=== PATIENT | female | born 1970 | race Caucasian/White ===

== ENCOUNTER → 2017-09-03 13:57 | Outpatient (CLI) | payer OTHER, SELFPAY ==
--- NOTE | 2017-09-03 11:55 | RAD_ITS ---
STUDY: X-RAY - RIGHT FOOT CLINICAL: Female, 47 years old. Pain across top of foot TECHNIQUE: 3 view(s) of the foot. COMPARISON: None. FINDINGS: Normal talus, calcaneus, and tarsal bones. Normal visualized subtalar, talonavicular, calcaneocuboid, tarsal and tarsometatarsal articulations. Normal metatarsi. Normal metatarsophalangeal joint of the great toe. Normal tibial and fibular sesamoid bones. Normal interphalangeal joint of the great toe. Normal phalanges of the great toe. Normal second through fifth metatarsophalangeal joints. Normal interphalangeal joints and phalanges of the lesser toes. The soft tissue structures are unremarkable. RAD/Foot min 3 Views IMPRESSION: Normal x-ray examination of the foot. Electronically Signed: Jostin Myers MD at 19:46 EDT , Service support ,
--- NOTE | 2017-09-03 14:01 | VDLE_ITS ---
Reason For Study: LEG SWELLING RIGHT LEFT GSV is normal. GSV is normal. CFV is compressible, spontaneous, phasic, CFV is compressible, spontaneous, phasic, competent and demonstrates normal competent, and demonstrates normal augmentation. augmentation. FV is compressible, spontaneous, phasic, FV is compressible, spontaneous, phasic, competent and demonstrates normal competent and demonstrates normal augmentation. augmentation. POP V is compressible, spontaneous, phasic, POP V is compressible, spontaneous, phasic, competent and demonstrates normal competent and demonstrates normal augmentation. augmentation. T/P Trunk is compressible. T/P Trunk is compressible. PTV is compressible. PTV is compressible. RT PerV is compressible. LT PerV is compressible. Procedure Exam performed in department. A preliminary report was called and/or faxed to Mack Funes. Interpretation Summary Deep veins of the lower extremities are bilaterally patent and compressible segmentally. There is no evidence of deep vein thrombosis on either side. Valvular competence appears intact within the proximal deep venous systems bilaterally. The greater saphenous veins appear bilaterally patent and compressible segmentally. Ordering Physician: PETRA Oquendo Referring Physician: PETRA Oquendo Performed By: Luz Perze RVT
== END ==
PROVIDERS: Family Provider Nurse Practitioner; PCP Nurse Practitioner; Visit Provider Nurse Practitioner Gerontology
DX: M79.671 Pain in right foot (principal); R60.0 Localized edema
CPT/HCPCS: 73630; 93970

== ENCOUNTER → 2018-02-21 16:40 | Outpatient (CLI) | payer OTHER, SELFPAY ==
[2017-03-04 15:26] VITALS: BMI 35.3
[2018-02-21 17:14] LABS: Absolute Lymphocyte Count 1.26 X10^3/ul (0.83-4.51); Absolute Neutrophil Count 3.7 X10^3/uL (2.0-7.7); Basophil# 0.01 X10^3/uL; Basophil% 0.2 % (0-1); Eosinophil# 0.09 X10^3/uL; Eosinophils% 1.6 % (0-5); Hematocrit 42.6 % (37-47); Hemoglobin 13.9 g/dl (12.0-15.0); Lymphocyte # 1.26 X10^3/ul (4.0); Lymphocyte % 22.1 % (19-41); Mean Corp Hgb Conc 32.6 g/gl (32-36); Mean Corpuscular Hgb 31.9 pg (27.0-32.0); Mean Corpuscular Volume 97.7 fL (81-99); Mean Platelet Vol. 8.7 fl (6.2-12.0); Monocyte# 0.64 X10^3/uL; Monocyte% 11.2 % (0-10); Neutrophil # 3.71 X10^3/uL (2.7-7.7); Neutrophil % 64.9 % (47-70); Platelet Count 368 K/mm3 (150-450); RBC Distribution Width CV 12.8 % (11.6-14.6); RBC Distribution Width SD 45.6 fl (35.1-43.9); Red Blood Count 4.36 M/mm3 (4.2-5.4); White Blood Count 5.7 K/mm3 (4.4-11.0)
[2018-02-21 17:16] LABS: POSITIVE COUNT NO; POSITIVE DIFFERENTIAL NO; POSITIVE MORPHOLOGY NO
[2018-02-21 17:54] LABS: ALB/GLOB Ratio 1.1 RATIO (0.9-2.4); AST(SGOT) 17 U/L (15-37); Alanine Aminotransfer ALT/SGPT 23 U/L (13-56); Albumin, Serum 3.9 g/dL (3.2-5.0); Alkaline Phosphatase 56 U/L (45-117); Anion Gap 9 (5-15); BUN 10 mg/dL (7-18); BUN/Creat Ratio 13.5 RATIO (10-20); Calcium,Total 8.6 mg/dL (8.5-10.1); Chloride 105 mmol/L (98-107); Creatinine, Serum 0.74 mg/dL (0.55-1.02); EST Glomerular Filtration Rate 90 mL/min (>60); Est Glom Filt Rate - Afr Amer 109 mL/min (>60); Globulin 3.6 g/dL (2.2-4.2); Glucose 76 mg/dL (74-106); Potassium 3.6 mmol/L (3.5-5.1); Protein, Total 7.5 g/dL (6.4-8.2); Sodium Level 140 mmol/L (136-145)
[2018-02-22 00:44] LABS: Xtra Tube EP Lab EXTRA TUBE
[2018-02-22 00:45] LABS: Xtra Tube EP Lab EXTRA TUBE
[2018-02-24 20:11] LABS: Immunoglobulin G 1016 mg/dL (700-1600); Immunoglobulin M 303 mg/dL (26-217)
[2018-02-25 09:45] LABS: Immunoglobulin A 19 mg/dL (87-352)
== END ==
PROVIDERS: Family Provider Nurse Practitioner; PCP Nurse Practitioner; Referring Provider Internal Medicine Medical Oncology; Visit Provider Internal Medicine Medical Oncology
DX: R76.8 Other specified abnormal immunological findings in serum (principal)
CPT/HCPCS: 36415; 80053; 82784; 83883; 85025

== ENCOUNTER → 2018-05-07 13:48 | Outpatient (CLI) | payer OTHER, SELFPAY ==
[2018-04-12 13:31] VITALS: BMI 34.7
--- NOTE | 2018-05-07 13:50 | CT_ITS ---
STUDY: CT ABDOMEN WITH CONTRAST REASON FOR EXAM: Female, 47 years old. Splenomegaly TECHNIQUE: Transaxial images were obtained post I.V. administration of Isovue 300 100CC IV, and with oral contrast. Sagittal and coronal images were reconstructed. Individualized dose optimization techniques were used for this CT. COMPARISON: 04/21/2016 FINDINGS: The visualized lung bases are unremarkable. The visualized portions of the heart are within normal limits. Normal liver. There are surgical clips in the gallbladder fossa consistent with a prior cholecystectomy. The spleen is normal in size, measuring 10.4 cm in maximal dimension. 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 Normal pancreas. Normal bilateral adrenal glands. Normal right kidney. Normal left kidney. Normal visualized stomach. Normal small intestine. Normal colon. The appendix is visualized and appears normal. Normal abdominal aorta. Normal inferior vena cava. Normal retroperitoneum. Normal abdominal wall. Normal osseous structures. CT/Abdomen WITH IV Contrast IMPRESSION: Normal size spleen. 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 Electronically Signed: Aguilar Morrison, at 17:30 EST Tel , Service support ,
== END ==
PROVIDERS: Family Provider Nurse Practitioner; PCP Nurse Practitioner; Referring Provider Internal Medicine Rheumatology; Visit Provider Internal Medicine Rheumatology
DX: R16.1 Splenomegaly, not elsewhere classified (principal)
CPT/HCPCS: 74160; Q9967

== ENCOUNTER → 2018-09-23 12:08 | Outpatient (CLI) | payer OTHER, SELFPAY ==
[2018-04-12 13:31] VITALS: BMI 34.7
--- NOTE | 2018-09-23 12:12 | RAD_ITS ---
STUDY: X-RAY CHEST REASON FOR EXAM: Female, 48 years old. Cough TECHNIQUE: PA and lateral views of the chest. COMPARISON: May 25, 2016 chest x-ray FINDINGS: The lungs are clear and expanded. There is no demonstrated pleural abnormality. Normal size heart. Normal mediastinum and estrella. Normal visualized pulmonary arteries. Normal visualized aortic arch and descending thoracic aorta. Normal visualized thoracic spine. Normal visualized ribs, clavicles, and shoulders. There is no demonstrated abnormality of the visualized soft tissue structures of the upper abdomen. RAD/Chest PA and Lateral IMPRESSION: Normal x-ray examination of the chest. Electronically Signed: Missy Flynn MD at 17:08 EDT Tel , Service support ,
== END ==
PROVIDERS: Family Provider Nurse Practitioner; PCP Nurse Practitioner; Referring Provider Internal Medicine; Visit Provider Internal Medicine
DX: R06.2 Wheezing (principal)
CPT/HCPCS: 71046

== ENCOUNTER → 2018-11-04 08:33 | Outpatient (CLI) | payer OTHER, SELFPAY ==
[2018-04-12 13:31] VITALS: BMI 34.7
--- NOTE | 2018-11-04 08:42 | RAD_ITS ---
CLINICAL HISTORY: Female, 48 years old. GERD, with dysphagia PROCEDURE: Esophagram Technique: Multiple fluoroscopic assessment performed after administration of double contrast medium, followed by single contrast medium with images acquired along the esophagus. Findings: Single and also double contrast study of the esophagus demonstrate that there is unremarkable mucosal pattern of the esophagus, without evidence of intraluminal lesion or stricture. Overall unremarkable peristalsis through the esophagus. There is no evidence of Zenker's diverticulum proximally. There is mild gastroesophageal reflux to the distal one third of esophagus. No evidence of sliding hiatal hernia is noted. Evaluation with a 0.5 inch barium pill demonstrates unremarkable peristalsis through the esophagus, with unremarkable emptying into the stomach without delay. RAD/Esophagus Only IMPRESSION: Mild gastroesophageal reflux to distal one third of esophagus. Unremarkable mucosal pattern of the esophagus. No evidence of focal stricture or narrowing. No evidence of Zenker's diverticulum. No evidence of sliding hiatal hernia is noted. Normal peristalsis of a 0.5 inch tablet through the esophagus and the gastroesophageal junction. Electronically Signed: Chuy Hunt MD at 14:53 EDT Tel [phone], Service support ,
== END ==
PROVIDERS: Family Provider Nurse Practitioner; PCP Nurse Practitioner; Referring Provider Otolaryngology; Visit Provider Otolaryngology
DX: R13.10 Dysphagia, unspecified (principal)
CPT/HCPCS: 74220

== ENCOUNTER → 2019-02-04 15:54 | Outpatient (CLI) | payer OTHER, SELFPAY ==
[2018-04-12 13:31] VITALS: BMI 34.7
--- NOTE | 2019-02-04 15:57 | RAD_ITS ---
STUDY: X-RAY - ABDOMEN/PELVIS REASON FOR EXAM: Female, 48 years old. Left upper quadrant pain TECHNIQUE: AP supine and upright views of the abdomen and pelvis. COMPARISON: None. FINDINGS: Normal visualized lung bases. There is an unremarkable bowel gas pattern. There is no demonstrated free abdominal air. The visualized liver, spleen and kidneys are grossly normal in size and morphology. Normal soft tissue structures. Normal visualized osseous structures. RAD/Abd Inc Decub and/or Erect IMPRESSION: Normal x-ray examination of the abdomen and pelvis. Electronically Signed: Jostin Myers MD at 16:18 EST , Service support ,
== END ==
PROVIDERS: Family Provider Nurse Practitioner; PCP Nurse Practitioner; Referring Provider Nurse Practitioner; Visit Provider Nurse Practitioner
DX: R10.12 Left upper quadrant pain (principal)
CPT/HCPCS: 74019

== ENCOUNTER → 2019-02-09 11:24 | Outpatient (CLI) | payer OTHER, SELFPAY ==
[2018-04-12 13:31] VITALS: BMI 34.7
== END ==
PROVIDERS: Family Provider Nurse Practitioner; PCP Nurse Practitioner; Referring Provider Nurse Practitioner; Visit Provider Nurse Practitioner
DX: I10 Essential (primary) hypertension (principal)
CPT/HCPCS: 93225; 93226

== ENCOUNTER → 2019-02-19 13:22 | Outpatient (CLI) | payer OTHER, SELFPAY ==
[2019-02-19 13:03] VITALS: BMI 34.7
--- NOTE | 2019-02-19 13:24 | RAD_ITS ---
HISTORY: cysts that have opened up and are oozing, 2nd and third distal fingers ADDITIONAL HISTORY: None provided. TECHNIQUE: Left hand 3 views Number of images including paperwork: 3 COMPARISON: None FINDINGS: BONES: No acute fracture. JOINTS: No subluxation. Mild degenerative changes of the small joints of the hand and of the wrist. SOFT TISSUES: No distinct foreign body. RAD/Hand Min 3 Views IMPRESSION: Degenerative changes without acute osseous abnormality. at 2344 Reported and signed by: Elaine Case MD Electronically Signed: Elaine Case MD at 23:44 EST Tel , Service support ,
[2019-02-19 18:03] LABS: AST(SGOT) 16 U/L (15-37); Alanine Aminotransfer ALT/SGPT 22 U/L (13-56); Albumin, Serum 3.9 g/dL (3.2-5.0); Alkaline Phosphatase 49 U/L (45-117); Cholesterol 187 mg/dL (200); Globulin 3.1 g/dL (2.2-4.2); High Density Lipoprotein 55 mg/dL; Triglycerides 83 mg/dL; Very Low Density Lipoprotein 17 mg/dL (5-40)
== END ==
PROVIDERS: Internal Medicine Cardiovascular Disease; Family Provider Nurse Practitioner; PCP Nurse Practitioner; Referring Provider Physician Assistant; Visit Provider Physician Assistant
DX: R94.5 Abnormal results of liver function studies (principal); Z83.438 Family history of other disorder of lipoprotein metabolism and other lipidemia; E66.9 Obesity, unspecified; E72.12 Methylenetetrahydrofolate reductase deficiency; R76.8 Other specified abnormal immunological findings in serum; D47.2 Monoclonal gammopathy; I10 Essential (primary) hypertension; R07.9 Chest pain, unspecified
CPT/HCPCS: 36415; 73130; 80061; 80076

== ENCOUNTER → 2019-02-26 20:22 | Outpatient (CLI) | payer OTHER, SELFPAY ==
[2019-02-19 15:14] VITALS: BMI 34.0
== END ==
PROVIDERS: Family Provider Nurse Practitioner; PCP Nurse Practitioner; Referring Provider Internal Medicine Cardiovascular Disease; Visit Provider Internal Medicine Cardiovascular Disease
DX: G47.10 Hypersomnia, unspecified (principal); I10 Essential (primary) hypertension
CPT/HCPCS: 95810

== ENCOUNTER → 2019-03-05 15:02 | Outpatient (CLI) | payer OTHER, SELFPAY ==
[2018-04-12 13:31] VITALS: BMI 34.7
[2019-03-05 07:49] VITALS: BMI 35.1
--- NOTE | 2019-03-05 15:03 | ECHOD_ITS ---
Reason For Study: CHEST PAIN Procedure This was a 2D Doppler, Color Flow transthoracic echocardiogram. Exam performed in department. Left Ventricle Normal size and thickness. The estimated ejection fraction is 65 %. Normal diastology for age. No regional wall motion abnormalities noted. Right Ventricle Normal size and thickness. Normal systolic function. Atria Normal left atrium. Normal right atrium. Normal atrial septum. Mitral Valve The mitral valve is structurally normal. No prolapse or stenosis seen. Tricuspid Valve Normal tricuspid valve. Unable to estimate RV systolic pressure due to insufficient tricuspid regurgitant envelope. Aortic Valve Normal aortic valve. Trisinus/trileaflet aortic valve. Pulmonic Valve Normal pulmonic valve. Great Vessels Normal aortic root. Normal arch. Normal inferior vena cava. Inferior vena cava collapse with sniff. Pericardium/Pleural No pericardial effusion. MMode/2D Measurements & Calculations LVIDd: 4.0 cm IVSd: 0.83 cm Ao root diam: 2.9 cm LVIDs: 2.6 cm LVPWd: 0.82 cm RVDd: 2.6 cm FS: 35.4 % LAV(MOD-bp): 50.0 ml LA A4 area: 17.3 cm2 LA dimension(2D): 2.7 cm LAV(MOD-bp) Indexed: 28.5 ml/m2 LAV(MOD-sp2): 43.4 ml LAV(MOD-sp4): 51.6 ml RA A4 area: 12.2 cm2 Time Measurements MV dec time: 0.15 sec Doppler Measurements & Calculations MV E max marcus: 98.0 cm/sec Lat Peak E' Marcus: 13.8 cm/sec Med Peak E' Marcus: 13.3 cm/sec MV A max marcus: 71.4 cm/sec E/E' lat: 7.1 E/E' med: 7.4 MV E/A: 1.4 Ao V2 max: 114.6 cm/sec LV V1 max: 98.4 cm/sec PA V2 max: 101.7 cm/sec Ao max P.3 mmHg LV V1 max P.9 mmHg Interpretation Summary The estimated ejection fraction is 65 %. Normal diastology for age. Unable to estimate RV systolic pressure due to insufficient tricuspid regurgitant envelope. Compared to echo report dated 11/02/2015, no appreciable changes noted. Ordering Physician: Mick Chavez Referring Physician: Madai Kaur Performed By: Kasie Sainz RDCS, RVT
--- NOTE | 2019-03-05 17:04 | BI_ITS ---
MAMMOGRAPHY - BILATERAL SCREENING REASON FOR EXAM: Female, 48 years old. Routine annual screening examination. PERTINENT HISTORY: Non-contributory. TECHNIQUE: Digital bilateral breast ojse (3D mammographic acquisition) in the CC and MLO projections. 2-D mediolateral oblique (MLO) and craniocaudad (CC) views of both breasts were obtained. CAD: Full Field Digital Mammography with Computer Added Detection was performed. COMPARISON: Comparison is made with prior study dated March 09, 2015. FINDINGS: Breast Composition: There are scattered areas of fibroglandular density. There are no dominant masses or suspicious calcifications. No other significant abnormalities are identified. There has been no significant change since the prior study. BI/SCREEN MAMM (CAD) W/JOSE BILAT IMPRESSION: Stable bilateral screening mammogram. Yearly follow-up mammogram recommended. (A) ASSESSMENT CATEGORY: BIRADS Category 1: Negative. A letter regarding these results will be sent to the patient by the facility within 30 days. Approximately 10% of breast cancers are not detected by mammography. A normal mammogram should not delay biopsy of a clinically suspicious abnormality. [id number] Electronically Signed: Edwin Salmeron, at 9:36 EST , Service support ,
== END ==
PROVIDERS: Family Provider Nurse Practitioner; PCP Nurse Practitioner; Referring Provider Internal Medicine Cardiovascular Disease; Visit Provider Internal Medicine Cardiovascular Disease
DX: I10 Essential (primary) hypertension (principal); R00.0 Tachycardia, unspecified; R07.9 Chest pain, unspecified; E72.12 Methylenetetrahydrofolate reductase deficiency; R76.8 Other specified abnormal immunological findings in serum; D47.2 Monoclonal gammopathy; M06.9 Rheumatoid arthritis, unspecified; C88.0 Waldenstrom macroglobulinemia; Z12.31 Encounter for screening mammogram for malignant neoplasm of breast
CPT/HCPCS: 77063; 77067; 93306

== ENCOUNTER → 2019-03-12 10:02 | Outpatient (CLI) | payer OTHER, SELFPAY ==
[2019-02-19 15:14] VITALS: BMI 34.0
[2019-03-05 07:49] VITALS: BMI 35.1
--- NOTE | 2019-03-12 10:02 | STE_ITS ---
Reason For Study: Chest Pain Stress Results Protocol: Spencer Protocol Maximum Predicted HR: 174 bpm Target HR: 148 bpm % Maximum Predicted HR: 87 % DurationHeart Rate Stage (mm:ss) (bpm) BP Comment Baseline 74 110/60No Chest Pain Spencer Protocol Stage I 3:00 99 124/70No Chest Pain Spencer Protocol Stage II 3:00 116 138/64No Chest Pain Spencer Protocol Stage III 3:00 127 150/62No Chest Pain Spencer Protocol Stage IV 1:01 151 / No Chest Pain Recovery 88 118/70No Chest Pain Stress Duration: 10:01 mm:ss Maximum Stress HR: 151 bpm METS: 13 Baseline Echocardiogram Findings The estimated ejection fraction is 65 %. Stress Echo Wall motion Data Resting WM Intermediate WM Stress WM Resting Wall Motion Wall Motion Stress No regional wall motion No regional wall motion abnormalities noted. abnormalities noted. EKG Data The baseline ECG displays normal sinus rhythm. The patient exercised according to the regular Spencer protocol for a total duration of 10:01. The maximum heart rate attained was 153 beats per minute. This was 87% of maximum predicted heart rate. The patient exercised into stage 4 of the Spencer protocol. During stress, there were no ST or T wave changes noted to suggest ischemia. No arrhythmias noted. No clinical angina was noted. Interpretation Summary The estimated ejection fraction is 65 %. Normal, adequate, treadmill echocardiogram. Negative for ischemia by EKG and echocardiographic criteria. No anginal symptoms noted. No arrhythmias noted. Appropriate blood pressure response to exercise. Average exercise capacity for age. Test terminated due to the attainment of target heart rate. Final LVEF is 75%. No complications. Ordering Physician: Mick Chavez Referring Physician: Madai Kaur Performed By: Louis Fraire RCS
== END ==
PROVIDERS: Family Provider Nurse Practitioner; PCP Nurse Practitioner; Referring Provider Internal Medicine Cardiovascular Disease; Visit Provider Internal Medicine Cardiovascular Disease
DX: R07.9 Chest pain, unspecified (principal); R00.0 Tachycardia, unspecified; I10 Essential (primary) hypertension; E72.12 Methylenetetrahydrofolate reductase deficiency; R76.8 Other specified abnormal immunological findings in serum; D47.2 Monoclonal gammopathy; M06.9 Rheumatoid arthritis, unspecified; C88.0 Waldenstrom macroglobulinemia
CPT/HCPCS: 93017; 93350; Q9957; A4216

== ENCOUNTER → 2019-03-26 10:34 | Outpatient (CLI) | payer OTHER, SELFPAY ==
[2019-03-05 07:49] VITALS: BMI 35.1
== END ==
PROVIDERS: Family Provider Nurse Practitioner; PCP Nurse Practitioner; Visit Provider Nurse Practitioner Acute Care
DX: Z46.89 Encounter for fitting and adjustment of other specified devices (principal)

== ENCOUNTER → 2019-04-21 16:12 | Outpatient (CLI) | payer OTHER, SELFPAY ==
[2019-04-21 15:02] VITALS: BMI 35.1
[2019-04-21 16:47] LABS: Hematocrit 39.4 % (37-47); Hemoglobin 13.1 g/dL (12.0-15.0); Mean Corp Hgb Conc 33.2 g/dL (32-36); Mean Corpuscular Hgb 31.7 pg (27.0-32.0); Mean Corpuscular Volume 95.4 fL (81-99); Mean Platelet Vol. 8.8 fl (6.2-12.0); Platelet Count 371 K/mm3 (150-450); RBC Distribution Width CV 12.7 % (11.6-14.6); RBC Distribution Width SD 44.8 fl (35.1-43.9); Red Blood Count 4.13 M/mm3 (4.2-5.4); White Blood Count 5.4 K/mm3 (4.4-11.0)
[2019-04-21 17:30] LABS: Vitamin B12 445 pg/mL (211-911)
[2019-04-21 18:07] LABS: Iron Binding Capacity,Total 391 ug/dL (250-450)
[2019-04-23 17:08] LABS: Vitamin D 1,25-Dihydroxy 31.3 pg/mL (19.9-79.3)
== END ==
PROVIDERS: PCP Nurse Practitioner; Referring Provider Nurse Practitioner Acute Care; Visit Provider Nurse Practitioner Acute Care
DX: R53.83 Other fatigue (principal)
CPT/HCPCS: 36415; 82607; 82652; 82746; 83550; 85027

== ENCOUNTER → 2021-01-09 08:29 | Outpatient (CLI) | payer OTHER, SELFPAY ==
--- NOTE | 2021-01-09 08:35 | US_ITS ---
STUDY: ULTRASOUND OF THE FEMALE PELVIS - COMPLETE REASON FOR EXAM: Female, 50 years old. LOWER ABD PRESSURE, RLQ PAIN LMP: 01/04/2021 TECHNIQUE: Transabdominal TECHNICAL QUALITY: Adequate. COMPARISON: None. FINDINGS: The uterus is anteverted and is in a midline position. The uterus measures 7.4 x 3.2 x 2.2 cm. Normal uterine cervix. The endometrium measures 6 mm in thickness, and is hyperechoic. There is no demonstrated endometrial mass. There is no demonstrated myometrial mass. I.U.D. - The patient does not have an I.U.D. The right ovary is visualized. The right ovary measures 2.8 x 1.7 x 1.5 cm. There is no right ovarian cyst or ovarian mass. There is no visualized right adnexal mass or complex lesion. There is normal arterial and normal venous vascularity. Status post left oophorectomy. There is no fluid in the cul-de-sac. The pre void volume of the bladder was ml. The post void volume of the bladder was ml. Polycystic ovary disease: No. US/Pelvic (Non ) IMPRESSION: Normal female pelvis after left oophorectomy. Electronically Signed: Liam Bennett MD at 8:21 EDT Tel , Service support ,
== END ==
PROVIDERS: PCP Nurse Practitioner; Referring Provider Nurse Practitioner; Visit Provider Nurse Practitioner
DX: R10.31 Right lower quadrant pain (principal)
CPT/HCPCS: 76856; 93976

== ENCOUNTER → 2021-01-10 08:06 | Outpatient (CLI) | payer OTHER, SELFPAY ==
--- NOTE | 2021-01-10 08:09 | US_ITS ---
STUDY: ABDOMINAL ULTRASOUND REASON FOR EXAM: Female, 50 years old. ABD PAIN TECHNIQUE: Transabdominal ultrasound was performed with real-time and static carreno scale imaging. TECHNICAL QUALITY: Adequate. COMPARISON: Comparison is made with prior study dated 07/03/2016. FINDINGS: Liver: The liver measures 12.7 cm. There is increased echogenicity consistent with fatty infiltration. The bile ducts are within normal limits. There is hepatic color flow. The direction of portal flow is hepatopetal. There is no demonstrated mass lesion. Gallbladder: The patient is status post cholecystectomy. Common Bile Duct (C.B.D.): The common bile duct measures 4 mm. Pancreas: Normal size of the head, body of the pancreas. The tail portion is obscured due to overlying bowel gas. There is normal echogenicity of the pancreas. There is no demonstrated pancreatic mass or cyst. Spleen: Normal size of the spleen. The spleen measures 10.5 cm x 5.7 cm x 3.7 cm. Right Kidney: Normal size of the right kidney. The right kidney measures 10 cm x 4.5 cm x 4.7 cm. Normal renal cortex. The right cortex measures 1.7 cm. There is no demonstrated renal mass or cyst. There is no right hydronephrosis. Left Kidney: Normal size of the left kidney. The left kidney measures 11.4 cm x 4.4 cm x 5.3 cm. Normal renal cortex. The left cortex measures 1.9 cm. There is no demonstrated renal mass or cyst. There is no left hydronephrosis. Aorta: Unremarkable I.V.C.: The IVC is patent. There is no ascites. US/Abdomen Complete IMPRESSION: Fatty infiltration of the liver. Electronically Signed: Edwin Salmeron MD at 15:23 EDT , Service support ,
== END ==
PROVIDERS: PCP Nurse Practitioner; Referring Provider Nurse Practitioner; Visit Provider Nurse Practitioner
DX: R10.30 Lower abdominal pain, unspecified (principal)
CPT/HCPCS: 76700

== ENCOUNTER 2021-05-18 09:57 | Outpatient (CLI) | payer OTHER, SELFPAY ==
--- NOTE | 2021-05-19 09:48 | PFTCOMP_ITS ---
COMPLETE PULMONARY FUNCTION TEST INTERPRETATION Brief HPI: Patient is a 50 year old female, currently under the care of myself, who presents to [facility] for complete pulmonary function tests secondary to diagnosis of cough. Respiratory therapist reports good effort and reproducible results. Interpretation: Forced expiration spirometry shows no large airways obstructive ventilatory defect with an FEV1 of 98% predicted. There is no significant bronchodilator response by strict ATS criteria. Spirograms are of good quality and plateau normally. The respiratory flow volume loop shows a normal pattern. Lung volumes by body plethysmography show a normal total lung capacity at 4.74 L, 119% predicted. All other lung volumes are within normal limits. Diffusion capacity by carbon monoxide is normal at 77% predicted. The airway resistance is normal. No previous pulmonary function tests were available for review. Impression: These pulmonary function tests are within normal limits.
== END 2021-05-18 23:59 | disposition home or self-care (01) ==
LOC: PSN 09:58
PROVIDERS: PCP Nurse Practitioner; Referring Provider Nurse Practitioner; Visit Provider Nurse Practitioner
DX: R05.9 Cough, unspecified (principal)
CPT/HCPCS: 94060; 94726; 94729

== ENCOUNTER 2021-05-31 02:56 | Emergency (ER) | payer OTHER, SELFPAY ==
[2021-05-31 02:58] VITALS: BP 125/86; PULSE 73; RESP 16; TEMP 36.1; O2SAT 98; BMI 37.8
[2021-05-31 03:00] VITALS: BP 125/86; PULSE 73; RESP 16; TEMP 36.1; O2SAT 98
--- NOTE | 2021-05-31 03:08 | EKG12_ITS ---
Test Reason : ABD PAIN Blood Pressure : / mmHG Vent. Rate : 068 BPM Atrial Rate : 068 BPM P-R Int : 162 ms QRS Dur : 070 ms QT Int : 404 ms P-R-T Axes : 084 065 071 degrees QTc Int : 429 ms Normal sinus rhythm Normal ECG Confirmed by KAREN SALDAÑA, MARYJANE ([id number]), index editor ALIYA BECK ([id number]) on 06/01/2021 9:42:51 AM Referred By: FRANKY Confirmed By:MARYJANE JONES MD
--- NOTE | 2021-05-31 03:08 | CT_ITS ---
STUDY: CT ABDOMEN AND PELVIS WITH CONTRAST REASON FOR EXAM: Female, 50 years old. abdominal pain -- IV PO Contrast RADIATION DOSAGE (If Supplied By Facility): CTDIvol = ( 18.04 ) mGy, DLP = ( 1232.91 ) mGycm TECHNIQUE: Transaxial images were obtained from the dome of the diaphragm to the symphysis pubis without oral contrast. Oral and amp; IV Gastrografin and amp; 100mL Isovue-300 was administered. Sagittal and coronal images were reconstructed. Individualized dose optimization techniques were used for this CT. COMPARISON: None. FINDINGS: The visualized lung bases are unremarkable. The visualized portions of the heart are within normal limits. Normal liver. There is non-visualization of the gallbladder, which may be secondary to either contraction or a prior cholecystectomy. Normal spleen. Normal pancreas. Normal bilateral adrenal glands. Normal right kidney. Normal left kidney. Normal visualized stomach. Normal small intestine. Normal colon. The appendix is visualized and appears normal. Normal abdominal aorta. Normal inferior vena cava. There is borderline enlargement of retroperitoneal lymph nodes the largest lymph node is in the right common iliac chain measuring approximately 1.5 x 1.4 cm. These lymph nodes are stable in size since the study from 04/21/2016 and are consistent with reactive lymphoid hyperplasia. Normal urinary bladder. Normal abdominal wall. Normal osseous structures. CT/Abdomen/Pelvis WITH Contrast IMPRESSION: Normal enhanced CT of the abdomen and pelvis. Electronically Signed: Kin Lane MD at 6:09 EDT ,
--- NOTE | 2021-05-31 03:09 | ED.VIS.GI ---
HPI HPI - GI History of Present Illness Chief Complaint: Abd Pain Detail of Chief Complaint: Abdominal pain x1 month Informant: patient Abdominal Pain/Flank Pain Current Severity: 05/25 Narrative Narrative: Patient presents to the emergency department complaint of abdominal pain that she said for about a month. Patient has history of gastritis and has tried Carafate and does not seem to be helping her pain. She tells me the pain comes and goes. She has pain whether she eats or does not eat but food typically makes the pain worse about an hour after eating. Patient cannot get into see her bullion weigher for a couple of months. She denies any fevers. She has had some mild nausea but no vomiting. She denies blood in her stool or black tarry stool. She denies urinary symptoms. She describes a pressure underneath her left ribs. Prior similar symptoms: Yes PFSH [facility] Medical History (Updated 05/31/21 @ 06:[address] Holger Cornelius, ) Anemia Anticardiolipin antibody positive Anxiety Chest pain Chest pain Depression Dermoid cyst Elevated LFTs Essential hypertension Family history of hyperlipidemia GERD (gastroesophageal reflux disease) Heterozygous MTHFR mutation [id number] Macroglobulinemia Mild sleep apnea Monoclonal gammopathy Neutropenia Obesity OOPHERECTOMY NEREIDA (obstructive sleep apnea) Raynaud disease Rheumatoid arthritis Shingles Splenic infarction Tachycardia Undifferentiated connective tissue disease Home Medications omeprazole 40 mg PO DAILY 02/18/15 [History Last Taken 03/10/16 08:00] cholecalciferol (vitamin D3) 2,000 unit PO BID PRN 06/13/16 [History Last Taken Unknown] lorazepam 0.5 mg PO DAILY PRN PRN 06/13/16 [History Last Taken Unknown] prednisone 10 mg PO DAILY PRN 07/09/16 [History Last Taken Unknown] Ca carb-Ca gluc-Mg ox-Mg gluco 2 ea PO DAILY PRN 01/23/17 [History Last Taken Unknown] amlodipine 2.5 mg tablet 2.5 mg PO DAILY #30 tab 02/19/19 [History Last Taken Unknown] hydroxychloroquine 200 mg tablet 200 mg PO DAILY tab 02/19/19 [History Last Taken Unknown] vilazodone 20 mg tablet 20 mg PO DAILY 04/21/19 [History Last Taken Unknown] lidocaine HCl [Lidocaine Viscous] 15 ml MUCOUS MEMBRANE TID PRN #100 ml 05/31/21 [Rx Last Taken Unknown] Allergy/AdvReac Type Severity Reaction Status Date / Time tramadol AdvReac PALPITATION Verified 06/02/20 10:50 S Family History Mother Thyroid disorder Colon cancer Father Lung cancer Colon cancer Obesity Hypertension Surgical History Hx of cholecystectomy Social History (Updated 06/02/20 @ 15:[address] Spencer Glaser MD) Smoking Status: Never smoker ROS ROS ED Constitutional Constitutional ED: Reports systems reviewed and no addt'l complaints, except as documented; Denies body ache(s), change in weight or chills Eyes Eyes: Denies acute decrease in peripheral vision, change in vision, double vision or loss of vision ENT ENT ED: Reports none; Denies ear pain, lip swelling, loss taste/smell, neck pain, otalgia or sore throat Cardiovascular Cardiovascular: Reports none; Denies abdominal pain, chest pain with activity, leg edema, lightheadedness, palpitations, rapid heart rate or syncope Respiratory/Chest Respiratory/Chest: Reports none; Denies change in mental status, dry cough, dyspnea, hemoptysis, shortness of breath at rest or shortness of breath with exertion Gastrointestinal Gastrointestinal: Reports none, abdominal pain and nausea; Denies change in stool character, diarrhea, hematemesis, hematochezia, melena, rectal bleeding or vomiting Genitourinary Genitourinary ED: Reports none; Denies abdominal discomfort, anuria, dysuria, genital pain or polyuria Musculoskeletal Musculoskeletal: Reports none; Denies arthralgias, back pain, difficulty walking, extremity pain, muscle weakness or myalgias Integumentary Reports none; Denies abscess or rash Neurologic Neurologic: Reports none; Denies abnormal gait, confusion, focal weakness, frequent falls, headache(s), loss of vision, numbness, paresthesias, radicular pain, vertigo or weakness Psychiatric Psychiatric: Reports systems reviewed and no addt'l complaints, except as documented and none; Denies behavioral changes, confusion, difficulty concentrating, hallucinations, suicidal ideation, tactile hallucinations or visual hallucinations Endocrine Endocrinology: Denies none, cold intolerance, excessive sweating, fatigue or heat intolerance Hematologic/Lymphatic Hematologic/Lymphatic: Reports none; Denies anemia, easy bleeding or easy bruising Allergic/Immunologic Allergic/Immunologic ED: Denies as per HPI, none, lip swelling, mouth swelling, throat swelling, tongue swelling or hives EXAM Physical Exam Const Vital Signs: 05/31/21 02:58 05/31/21 03:00 05/31/21 06:20 Temperature 96.9 F L 96.9 F L Temperature Source Temporal Temporal Pulse Rate 73 73 Respiratory Rate 16 16 17 Blood Pressure 125/86 H 125/86 H Blood Pressure Mean 99 99 Pulse Ox 98 98 Oxygen Delivery Method Room Air Room Air Positive well nourished and well developed General Appearance ED: well developed and NAD HEENT Reports TM's clear and moist mucous membranes normocephalic and atraumatic; Negative for trauma or tenderness Tympanic Membrane ED: Yes TM's clear Eyes PERRL and EOMs intact bilaterally General Eye ED: Negative for pale conjunctiva or scleral icterus Neck no lymphadenopathy, supple and no JVD General: Negative for tenderness Chest Wall inspection of chest normal and palpation of chest normal Chest: Negative for tenderness Resp normal respiratory effort and clear to auscultation bilaterally Effort and Inspection: Negative for respiratory distress or pain with movement Auscultation: Negative for rhonchi, wheezes or diminished lung sounds Cardio regular rate, regular rhythm, S1 normal heart sound, S2 normal heart sound and no murmurs Peripheral Pulses: pulses 2+ throughout GI normal to inspection, nondistended, normoactive bowel sounds, soft to palpation, non-distended and no masses GI Narrative: Patient with tenderness palpation over left upper quadrant underneath the ribs. There are some mild guarding. There is no rebound, rigidity, or peritoneal signs. Back/Spine no CVA tenderness and no thoracic nor lumbar tenderness Extremity normal to inspection General Extremety ED: Negative for edema General Extremity: Negative for edema Neuro oriented x3, CN's II-XII intact bilaterally, no sensory deficits noted and gait normal Sensorium / Orientation: awake, alert, oriented to person, oriented to place and oriented to time Motor Exam: strength 5/5 throughout and strength abnormal Psych mental status grossly normal Skin no rashes or lesions noted and no wounds MDM MDM MDM Narrative Medical decision making narrative: IV line established on arrival. Patient denies anything for pain initially. She did take 1 dose of a GI cocktail but did not get much improvement with that. Lab work was unremarkable. CT scan with IV and p.o. contrast was unremarkable. At this point etiology of her symptoms unclear although I suspect an element of gastritis. Patient referred to GI for follow-up. Patient to continue with her Prevacid. I will write her for viscous lidocaine and she can take that with Maalox as needed. Lab Data Attestation: I reviewed the patient's lab results. Labs: Laboratory Results - last 24 hr 05/31/21 05/31/21 05/31/21 03:20 03:20 03:20 WBC 3.7 L RBC 3.95 L Hgb 13.1 Hct 37.8 MCV 95.7 MCH 33.2 H MCHC 34.7 RDW Std Deviation 41.2 RDW Coeff of Alexander 11.9 Plt Count 281 MPV 8.6 Immature Gran % (Auto) 0.300 Neut % (Auto) 46.6 L Lymph % (Auto) 32.6 Grainger % (Auto) 17.0 H Eos % (Auto) 3.0 Baso % (Auto) 0.5 Absolute Neuts (auto) 1.7 L Absolute Lymphs (auto) 1.19 Nucleated RBC % 0 Sodium 139 Potassium 3.6 Chloride 106 Carbon Dioxide 28.0 Anion Gap 5 BUN 12 Creatinine 0.78 Estim Creat Clear Calc 118.22 Est GFR (MDRD) Af Amer 101 Est GFR (MDRD) Non-Af 83 BUN/Creatinine Ratio 15.4 Glucose 98 Lactic Acid 0.9 Calcium 8.6 Total Bilirubin 0.40 AST 20 ALT 26 Alkaline Phosphatase 51 Troponin I High Sens 4 Total Protein 6.7 Albumin 3.8 Globulin 2.9 Albumin/Globulin Ratio 1.3 Lipase 96 Urine Color Urine Clarity Urine pH Ur Specific [place] Urine Protein Urine Glucose (UA) Urine Ketones Urine Occult Blood Urine Nitrite Urine Bilirubin Urine Urobilinogen Ur Leukocyte Esterase Urine RBC Urine WBC Ur Squamous Epith Cells Urine Bacteria Urine Mucus 05/31/21 03:31 WBC RBC Hgb Hct MCV MCH MCHC RDW Std Deviation RDW Coeff of Alexander Plt Count MPV Immature Gran % (Auto) Neut % (Auto) Lymph % (Auto) Grainger % (Auto) Eos % (Auto) Baso % (Auto) Absolute Neuts (auto) Absolute Lymphs (auto) Nucleated RBC % Sodium Potassium Chloride Carbon Dioxide Anion Gap BUN Creatinine Estim Creat Clear Calc Est GFR (MDRD) Af Amer Est GFR (MDRD) Non-Af BUN/Creatinine Ratio Glucose Lactic Acid Calcium Total Bilirubin AST ALT Alkaline Phosphatase Troponin I High Sens Total Protein Albumin Globulin Albumin/Globulin Ratio Lipase Urine Color Yellow Urine Clarity Clear Urine pH 6.5 Ur Specific [place] 1.010 Urine Protein Negative Urine Glucose (UA) Normal Urine Ketones Negative Urine Occult Blood 250 H Urine Nitrite Negative Urine Bilirubin Negative Urine Urobilinogen Normal Ur Leukocyte Esterase Negative Urine RBC 10-25 SEEN Urine WBC 0 SEEN Ur Squamous Epith Cells 0-5 SEEN Urine Bacteria 1+ Urine Mucus 0 SEEN Radiography Diagnostic Testing: Clinical Impression(s) from Imaging Studies Abdomen/Pelvis CT 05/31/21 03:08 IMPRESSION: Normal enhanced CT of the abdomen and pelvis. Electronically Signed: Kin Lane MD at 6:09 EDT , EKG Initial EKG: Attestation: I personally reviewed and interpreted this EKG as follows: Comments: Sinus rhythm with a ventricular rate of 60 bpm with no acute ST segment change Discharge Plan Triage Chief Complaint: Abd Pain ED Provider: Holger Cornelius Dx/Rx/DC Orders Clinical Impression: Abdominal pain, Gastritis Instructions: ED Abdominal Pain Unkn Cause Fem, ED Gastritis (Adult) Prescriptions: New lidocaine HCl [Lidocaine Viscous] 2 % solution 15 ml mucous membrane TID PRN (Reason: pain) Qty: 100 RF: 0 No Action amlodipine 2.5 mg tablet 2.5 mg PO DAILY Qty: 30 RF: 0 Viibryd 20 mg tablet 20 mg PO DAILY RF: 0 omeprazole 40 MG capsule 40 mg PO DAILY RF: 0 hydroxychloroquine 200 mg tablet 200 mg PO DAILY RF: 0 lorazepam 0.5 MG tablet 0.5 mg PO DAILY PRN PRN (Reason: Anxiety) RF: 0 cholecalciferol (vitamin D3) 2,000 UNIT capsule 2,000 unit PO BID PRN (Reason: OTHER) RF: 0 prednisone 10 MG tablet 10 mg PO DAILY PRN (Reason: Pain) RF: 0 Ca carb-Ca gluc-Mg ox-Mg gluco 1 EACH tablet 2 ea PO DAILY PRN (Reason: OTHER) RF: 0 Primary Care Provider: Madai Kaur NP Referrals: Friend,DO Amauri [STAFF PHYSICIAN] - 3-5 Days Madai Kaur NETWORK FIREWALL ENGINEER, NETWORK FIREWALL ENGINEER-C [Primary Care Provider] - Activity Restrictions/Additional Instructions: Combined 15 mL of the viscous lidocaine with 30 mL of the Mylanta per dose and you may take it up to 3 times a day as needed. Disposition Disposition: Home, Self Care
[2021-05-31 03:28] LABS: Absolute Lymphocyte Count 1.19 X10^3/uL (0.83-4.51); Absolute Neutrophil Count 1.7 X10^3/uL (2.0-7.7); Basophil# 0.02 X10^3/uL; Basophil% 0.5 % (0-1); Eosinophil# 0.11 X10^3/uL; Hematocrit 37.8 % (37-47); Hemoglobin 13.1 g/dL (12.0-15.0); Lymphocyte # 1.19 X10^3/ul (0.83-4.51); Lymphocyte % 32.6 % (19-41); Mean Corp Hgb Conc 34.7 g/dL (32-36); Mean Corpuscular Hgb 33.2 pg (27.0-32.0); Mean Corpuscular Volume 95.7 fL (81-99); Mean Platelet Vol. 8.6 fl (6.2-12.0); Monocyte# 0.62 X10^3/uL; NRBC Flagged by Analyzer 0 % (0-5); Neutrophil % 46.6 % (47-70); Platelet Count 281 K/mm3 (150-450); RBC Distribution Width CV 11.9 % (11.6-14.6); RBC Distribution Width SD 41.2 fl (35.1-43.9); Red Blood Count 3.95 M/mm3 (4.2-5.4); White Blood Count 3.7 K/mm3 (4.4-11.0)
[2021-05-31] MEDS: 0.9% Normal Saline 1,000 ML 125 ML IV (03:35)
[2021-05-31 03:41] LABS: Mucous, Urine 0 SEEN /hpf (<or=2+); White Blood Cells 0 SEEN /hpf (0-5)
[2021-05-31 03:47] LABS: ALB/GLOB Ratio 1.3 RATIO (0.9-2.4); AST(SGOT) 20 U/L (15-37); Alanine Aminotransfer ALT/SGPT 26 U/L (13-56); Albumin, Serum 3.8 g/dL (3.2-5.0); Alkaline Phosphatase 51 U/L (45-117); Anion Gap 5 (5-15); BUN 12 mg/dL (7-18); BUN/Creat Ratio 15.4 RATIO (10-20); Calcium,Total 8.6 mg/dL (8.5-10.1); Chloride 106 mmol/L (98-107); Creatinine, Serum 0.78 mg/dL (0.55-1.02); EST Glomerular Filtration Rate 83 mL/min (>60); Est Glom Filt Rate - Afr Amer 101 mL/min (>60); Estimated Creatinine Clearance 118.22 ml/min; Globulin 2.9 g/dL (2.2-4.2); Glucose 98 mg/dL (74-106); Lipase 96 U/L (73-393); Potassium 3.6 mmol/L (3.5-5.1); Protein, Total 6.7 g/dL (6.4-8.2); Sodium Level 139 mmol/L (136-145); Troponin-I HS 4 pg/mL (3.0-54.0)
[2021-05-31 03:51] LABS: Lactic Acid 0.9 mmol/L (0.4-1.9)
[2021-05-31 03:56] LABS: Color, Urine Yellow (Yellow); Glucose, Dipstick Normal (Normal); Ketone-Dipstick Negative (Negative); Leukocyte Esterase-Dipstick Negative /ul (Negative); Nitrite-Dipstick Negative (Negative); Occult Blood-Urine 250 /ul (Negative); Protein-Dipstick Negative (Negative); Urine Bilirubin Dipstick Negative (Negative); Urine Clarity Clear (Clear); Urine Urobilinogen Normal (Normal); Urine pH 6.5 (5.0 - 8.0)
[2021-05-31 04:10] LABS: Bacteria 1+ /hpf (None Seen); Red Blood Cells-Urine 10-25 SEEN /hpf (0-5); Squamous Epithelial Cells - UA 0-5 SEEN /hpf (5-10)
[2021-05-31] MEDS: Mag Hydrox/Al Hydrox/Simeth 30 ML UDC PO (06:19)
[2021-05-31 06:20] VITALS: RESP 17
[2021-05-31 06:45] VITALS: BP 125/80; PULSE 88; RESP 17; O2SAT 98
== END 2021-05-31 06:46 | disposition home or self-care (01) ==
PROVIDERS: Emergency Provider Emergency Medicine; PCP Nurse Practitioner; Visit Provider Emergency Medicine
DX: K29.70 Gastritis, unspecified, without bleeding (principal); M06.9 Rheumatoid arthritis, unspecified; I10 Essential (primary) hypertension; K21.9 Gastro-esophageal reflux disease without esophagitis; G47.33 Obstructive sleep apnea (adult) (pediatric); E66.9 Obesity, unspecified; Z79.52 Long term (current) use of systemic steroids; Z79.899 Other long term (current) drug therapy
CPT/HCPCS: 74177; 80053; 81001; 83605; 83690; 84484; 85025; 93005; 96360; 96361; 99285; J7030; Q9967; A4216

== ENCOUNTER 2021-07-04 07:27 | Day surgery (SDC) | payer OTHER, SELFPAY ==
[2021-07-04] VITALS (8 sets, daily range): BP systolic 78–112; BP diastolic 49–75; PULSE 63–80; RESP 16–18; TEMP 36.2–36.4; O2SAT 94–100; BMI 35.8
--- NOTE | 2021-07-04 | EGD_PTH ---
PATIENT: IMELDA MAYERS LOC: EN U#:[id number] AGE/SX: 50/F ROOM: RE07/04/[address]: Dr. Serafin Ignacio MD : 1970 BED: DIS: 07/04/2021 SPEC #: [id number] RECD: 07/04/21 09:42 STATUS: ROSI BONILLA #: [id number] TASHIA: 07/04/21 00:[address]: Serafin Ignacio DEPT: SURGICAL PATHOLOGY RECD BY: Titus Frias ENTERED: 07/04/21 10:25 SP TYPE: EGD BIOPSY OT DR: Dr. Rubi Peacock, DO Tissues: A - Duodenum, NOS B - Gastric mucous membrane C - Esophageal mucous membrane D - Esophageal mucous membrane Procedures: Surgery Specimen Level IV HEADER OPERATION: [place] [place] probe PRE-OP DIAGNOSIS: Difficulty swallowing, acid reflux, abdominal pain, rectal pressure TISSUE SUBMITTED: A ? Duodenum biopsy, B ? Antrum biopsy for H. pylori and path, C ? Distal esophagus biopsy, D ? Mid esophagus biopsy MICROSCOPIC DIAGNOSIS A. Duodenum, biopsy: A fragment of duodenal mucosa, no pathologic diagnosis. B. Antrum, biopsy: Mild gastritis. See microscopic description and comment. C. Distal esophagus, biopsy: Fragments of squamous mucosa with mild chronic inflammation and changes consistent with gastroesophageal reflux disease. Focal minimal superficial acute inflammation. D. Mid esophagus, biopsy: A fragment of squamous epithelium, no pathologic diagnosis. SJ:mason 07/05/2021 COMMENT B. The results of immunohistochemistry for Helicobacter pylori will be reported separately ([id number]). MICROSCOPIC DESCRIPTION Slides are reviewed. B. The specimen shows fragments of gastric mucosa with chronic inflammatory cell infiltrates in the lamina propria consisting of lymphocytes and plasma cells, consistent with mild chronic gastritis. GROSS DESCRIPTION A - Received in fixative is one container labeled with the patient's name and designated duodenum biopsy. The specimen consists of one irregular fragment of light cevallos soft tissue that measures 0.5 x 0.3 x 0.1 cm. The specimen is totally submitted in one cassette. B - Received in fixative is one container labeled with the patient's name and designated antrum biopsy. The specimen consists of one irregular fragment of light cevallos soft tissue that measures 0.3 x 0.3 x 0.1 cm. The specimen is totally submitted in one cassette. C - Received in fixative is one container labeled with the patient's name and designated distal esophagus biopsy. The specimen consists of three irregular fragments of light cevallos soft tissue that in aggregate measure 0.6 x 0.3 x 0.1 cm. The specimen is totally submitted in one cassette. D - Received in fixative is one container labeled with the patient's name and designated mid esophagus biopsy. The specimen consists of one irregular fragment of light cevallos soft tissue that measures 0.5 x 0.3 x <0.1 cm. The specimen is totally submitted in one cassette. / AM:mason 07/04/2021 TC:3 CPT: 79965 x4
[2021-07-04] MEDS: Lactated Ringers 1,000 ML 15 ML IV (07:50)
--- NOTE | 2021-07-04 08:05 | PCM.HP.BLA ---
History and Physical Date of Admission: 07/04/21 Visit Reasons: UPPER AND LOWER SCOPE Chief Complaint: upper and lower scope Preparator Required: No Is patient in pain?: No Allergies latex Adverse Reaction (Verified 06/20/21 14:29) rash tramadol Adverse Reaction (Verified 06/02/20 10:50) PALPITATIONS Medications omeprazole 40 mg PO DAILY 02/18/15 [History Confirmed 06/20/21] cholecalciferol (vitamin D3) 2,000 unit PO BID PRN 06/13/16 [History Confirmed 06/20/21] lorazepam 0.5 mg PO DAILY PRN PRN 06/13/16 [History Confirmed 06/20/21] prednisone 10 mg PO DAILY PRN 07/09/16 [History Confirmed 06/20/21] Ca carb-Ca gluc-Mg ox-Mg gluco 2 ea PO DAILY PRN 01/23/17 [History Confirmed 06/20/21] amlodipine 2.5 mg tablet 2.5 mg PO DAILY #30 tab 02/19/19 [History Confirmed 06/20/21] hydroxychloroquine 200 mg tablet 200 mg PO BID tab 06/20/21 [History Confirmed 06/20/21] hyoscyamine sulfate 0.125 mg tablet 0.125 mg PO BID-QID PRN 06/20/21 [History Confirmed 06/20/21] sucralfate 100 mg/mL oral suspension 10 ml PO QACHS 06/20/21 [History Confirmed 06/20/21] PFSH Medical History (Updated 06/20/21 @ 14:[address] Serafin Ignacio MD) Anemia Anticardiolipin antibody positive Anxiety Chest pain Chest pain Depression Dermoid cyst Elevated LFTs Essential hypertension Family history of hyperlipidemia GERD (gastroesophageal reflux disease) Heterozygous MTHFR mutation [id number] Macroglobulinemia Mild sleep apnea Monoclonal gammopathy Neutropenia Obesity OOPHERECTOMY NEREIDA (obstructive sleep apnea) Raynaud disease Rheumatoid arthritis Shingles Splenic infarction Tachycardia Undifferentiated connective tissue disease Surgical History (Updated 06/20/21 @ 14:25 by Lexii Saturday) Hx of cholecystectomy Hx of removal of ovary Family History Mother Thyroid disorder Colon cancer Father Lung cancer Colon cancer Obesity Hypertension Grandmother Colon cancer Diabetes Social History (Updated 06/02/20 @ 15:[address] Spencer Glaser MD) Smoking Status: Former smoker alcohol intake: never substance use type: does not use HPI HPI HPI: IMELDA COSBY, is a 50 F who presents to the office today for surgical consultation regarding abdominal pain and food getting caught in her throat. She is referred by Madai Kaur CNP and a written copy of my surgical consult recommendations will be returned to her. The patient has been previously seen by Dr. Newton rheumatology thought she might have rheumatoid or mixed connective tissue disorder. The patient was seen at [facility] and there was concern of a connective tissue disease. She has previously been seen by Dr. Pedrito German 2017 was diagnosed with gastritis had a barium swallow at that time. She was placed on a proton pump inhibitor. She has also been on Carafate as well. Grandmother had colon cancer. The patient's current BMI is 38.8 She was most recently seen in the emergency room on May 31, 2021 complaining of a month history of abdominal pain. She was given a GI cocktail without much improvement. CBC with differential was normal. Complete metabolic profile was normal. Urinalysis had urine occult blood 250 and 10-25 RBCs with no white cells and 1+ bacteria. A CT scan of the abdomen pelvis was obtained and this was felt to be normal. EKG was obtained and this was normal. The patient was given a prescription for viscous lidocaine. She was given a referral to Dr. Baugh Friend Current complaint is retrosternal pain. A feeling of reflux upper esophagus. Discomfort up in the pharyngeal area. She thinks she aggravated this by taking Aleve 2 months ago for severe neck pain. She now wonders whether the prescribed Carafate may be aggravating some of her swallowing problems. Previously January 25, 2017 I performed a combined upper and lower endoscopy for her. Duodenal pathology was normal. Antral biopsies showed mild gastritis. Distal esophageal biopsy was unremarkable. Fragments of colonic mucosa for random biopsies were normal. H. pylori was negative that time. November 04, 2018 she had a barium swallow ordered by Dr. Lobato. That did not show hiatal hernia but he did demonstrate reflux. There was no Zenker's diverticulum. She recently has had a stool test negative for blood. She has had H. pylori test which was negative. She is also complaining of an anal rectal discomfort. She claims that it is very uncomfortable to sit on a hard seat. She has low abdominal pressure. She has had a healthy ultrasound that was normal. She denies bright red blood per rectum or melena. Previous abdominal surgery includes a cholecystectomy and a left salpingo-oophorectomy. Her recent CBC and CMP were normal. Urinalysis showed some urine occult blood. 10-25 red cells. ROS General General: Yes appetite; No weight change, fatigue, colon cancer, breast cancer or weakness HEENT HEENT: Yes difficulty swallowing; No eye injury, eye surgery, swollen glands or hoarseness Endo Endocrine: No thyroid disease, diabetes mellitus, thyroid cancer, Hair loss, heat intolerance or cold intolerance Skin Skin: No rash or changing moles Musc Musculoskeletal: Yes arthritis; No back problems, rheumatoid arthritis, gout or joint pain Cardio Cardiovascular: Yes high blood pressure; No murmur, pacemaker, heart disease, atrial fibrillation, heart attack, heart stent, palpitations, shortness of breat with exertion or chest pain Psych Psychiatric: Yes depression and anxiety; No hearing voices Resp Respiratory: No shortness of breath, Yes sleep apnea, No cough, No COPD, No asthma, No emphysema and No wheezing Gastro Gastrointestinal: Yes abdominal pain, No nausea or vomiting, No diarrhea, No constipation, No blood in stool, Yes acid reflux, No hemorrhoids, No ulcers, Yes gallbladder problem and No black,tarry stools Angel Hematologic: No blood thinners, Yes blood disorders, No bleeding, Yes anemia and Yes blood clots Neuro Neurologic: No system reviewed and no additional complaints, except as documented, No as per HPI, No abnormal gait, No abnormal hearing, No abnormal movements, No abnormal speech, No behavioral changes, No burning sensations, No confusion, No convulsions, No disequilibrium, No dizziness, No localized weakness, No frequent falls, No headache(s), No lack of coordination, No loss of vision, No memory loss, No numbness, No other visual disturbances, No radicular pain, No restless legs, No sensory deficit, No syncope, No tingling, No tremor(s), No weakness and No other Exam Const General: cooperative, healthy appearing, comfortable and no acute distress Nutritional Appearance: obese [facility] Head: normal to inspection Eyes General: appearance normal, both eyes and all related structures Resp Effort & Inspection: normal respiratory effort Auscultation: clear to auscultation bilaterally Cardio Rate: regular rate Rhythm: regular rhythm GI Other: Soft, nontender, no gross hepatosplenomegaly, bowel sounds present unremarkable, well-healed laparoscopic incisions Musc Cervical Spine: normal cervical lordosis Skin General: no rashes or lesions noted Neuro General: patient alert, patient awake and patient oriented x3 Extrem General: no calf tenderness Psych Appearance: grossly normal Assessment and Plan Assessment and Plan (1) Difficulty swallowing: Status: Acute Qualifiers: Dysphagia type: oropharyngeal phase Qualified Code(s): R13.12 - Dysphagia, oropharyngeal phase (2) Acid reflux: Status: Acute Qualifiers: Esophagitis presence: esophagitis presence not specified Qualified Code(s): K21.9 - Gastro-esophageal reflux disease without esophagitis (3) Abdominal pain: Status: Acute Qualifiers: Abdominal location: left upper quadrant Qualified Code(s): R10.12 - Left upper quadrant pain (4) Rectal pressure: Status: Acute Plan - Dr. Serafin Ignacio MD: Although previous upper endoscopy with biopsy did not demonstrate distal esophagitis she has had a barium swallow since that time demonstrating free reflux. No Zenker's. She did take some Aleve which may have aggravated peptic ulcer disease and reflux symptoms. I propose for her and esophagogastroduodenoscopy with possible biopsy or polypectomy as indicated. I would propose placement of a Fajardo pH probe as well. The left upper quadrant abdominal pain rectal pressure of undetermined allergy. Recommend a colonoscopy with possible biopsy or polypectomy as indicated. She is aware of technique, benefit, risk of alternatives. She has heterogenous MTHFR mutation. She is anticardiolipin positive. Monoclonal colopathy and rheumatoid arthritis with macroglobulinemia. She is on omeprazole daily 40 mg. She takes prednisone as needed. She is not on any anticoagulation. I appreciate the opportunity of assisting with her surgical care. We will try to schedule and expedite her management. Copy: Madai Kaur NP-C Serafin Ignacio M.D., F.A.C.S. I have re-examined the patient. There are no clinical changes since date of exam.
--- NOTE | 2021-07-04 08:30 | IMM_PTH ---
PATIENT: IMELDA MAYERS LOC: EN U#:[id number] AGE/SX: 50/F ROOM: RE07/04/[address]: Dr. Serafin Ignacio MD : 1970 BED: DIS: 07/04/2021 SPEC #: [id number] RECD: 07/04/21 12:22 STATUS: ROSI REVidya #: [id number] TASHIA: 07/04/21 08:[address]: Serafin Ignacio DEPT: IMMUNOHISTOCHEMISTRY RECD BY: Mariela Cottrell ENTERED: 07/04/21 12:23 SP TYPE: IMMUNO OTHR DR: Dr. Rubi Peacock, DO Tissues: B - Stomach, NOS Procedures: H Pylori (initial) PHYSICIAN & INSTITUTION [place] [id number] SPECIMEN INFORMATION: Tissue Source: B ? Antrum biopsy Clinical Info: Difficulty swallowing, acid reflux, abdominal pain, rectal pressure Specimen Number: [id number] CPT code: 80473 METHODOLOGY: Deparaffinized sections of prefer/formalin-fixed tissue or PAP/DQ stained slides are incubated with monoclonal/polyclonal antibodies/oligonucleotide probes. Localization is made via biotin free immunoperoxidase method. Appropriate controls are performed and reacted as expected. Results on target cell population are indicated in the following table: RESULTS: ANTIBODY / CLONE RESULT Block B H Pylori (polyclonal) negative These tests were developed and their performance characteristics determined by [facility]. They may not have been cleared or approved by the U.S. Food and Drug Administration. The FDA has determined that such clearance or approval is not necessary. INTERPRETATION: B. Antrum, biopsy: Negative for Helicobacter pylori organisms. SJ:mason 07/05/2021
[2021-07-04 08:37] LABS: Internal QC Validated? YES +Cl - CLEAR BKGD
[2021-07-04 08:40] LABS: Pregnancy, Urine Negative Negative
--- NOTE | 2021-07-04 09:33 | OP.EGD_ITS ---
Patient Name: Tatyana Vela Procedure Date: 07/04/2021 9:00 AM Date of : 1970 Age: 50 Procedure: Upper GI endoscopy Indications: Dysphagia Providers: Serafin Ignacio MD Medicines: See the Anesthesia note for documentation of the administered medications Complications: No immediate complications. Procedure: Pre-Anesthesia Assessment: - Prior to the procedure, a History and Physical was performed, and patient medications and allergies were reviewed. The patient's tolerance of previous anesthesia was also reviewed. The risks and benefits of the procedure and the sedation options and risks were discussed with the patient. All questions were answered, and informed consent was obtained. Prior Anticoagulants: The patient has taken no previous anticoagulant or antiplatelet agents. ASA Grade Assessment: II - A patient with mild systemic disease. After reviewing the risks and benefits, the patient was deemed in satisfactory condition to undergo the procedure. After obtaining informed consent, the endoscope was passed under direct vision. Throughout the procedure, the patient's blood pressure, pulse, and oxygen saturations were monitored continuously. The gastroscope was introduced through the mouth, and advanced to the second part of duodenum. The upper GI endoscopy was accomplished without difficulty. The patient tolerated the procedure well. Scope In: 9:01:17 AM Scope Out: 9:10:22 AM Total Procedure Duration Time 0 hours 9 minutes 5 seconds Findings: LA Grade A (one or more mucosal breaks less than 5 mm, not extending between tops of 2 mucosal folds) esophagitis with no bleeding was found 33 cm from the incisors. Biopsies were taken with a cold forceps for histology. The middle third of the esophagus was normal. Biopsies were taken with a cold forceps for histology. A large hiatal hernia was present. Diffuse minimal inflammation characterized by erythema was found in the gastric antrum. Biopsies were taken with a cold forceps for histology. The examined duodenum was normal. Biopsies were taken with a cold forceps for histology. The LEI capsule with delivery system was introduced through the mouth and advanced into the esophagus, such that the LEI pH capsule was positioned 27 cm from the incisors, which was 6 cm proximal to the GE junction. The LEI pH capsule was then deployed and attached to the esophageal mucosa. The delivery system was then withdrawn. Endoscopy was utilized for probe placement and diagnostic evaluation. Impression: - LA Grade A reflux esophagitis. Biopsied. - Normal middle third of esophagus. Biopsied. - Large hiatal hernia. - Gastritis. Biopsied. - Normal examined duodenum. Biopsied. - An esophageal pH probe catheter was placed. - The LEI pH capsule was deployed. Recommendation: - Discharge patient to home. - Resume previous diet. - Continue present medications. - Return to my office in 3 weeks. Procedure Code(s): --- Professional --- 52613, Esophagogastroduodenoscopy, flexible, transoral; with biopsy, single or multiple Diagnosis Code(s): --- Professional --- K21.0, Gastro-esophageal reflux disease with esophagitis K44.9, Diaphragmatic hernia without obstruction or gangrene K29.70, Gastritis, unspecified, without bleeding R13.10, Dysphagia, unspecified CPT copyright 2017 [employer]. All rights reserved. The codes documented in this report are preliminary and upon certified medical biller review may be revised to meet current compliance requirements. Serafin Ignacio MD 07/04/2021 9:33:11 AM This report has been signed electronically. Number of Addenda: 0 Note Initiated On: 07/04/2021 9:00 AM
--- NOTE | 2021-07-04 09:34 | OP.CCLET_ITS ---
07/04/2021 Madai Kaur, RA [address] [place] [address] Re : Upper GI endoscopy procedure for Tatyana Vela Dear Ms. Kaur This procedure was performed on Sunday, July 04, 2021. My impressions and recommendations are as follows: Impressions : - LA Grade A reflux esophagitis. Biopsied. - Normal middle third of esophagus. Biopsied. - Large hiatal hernia. - Gastritis. Biopsied. - Normal examined duodenum. Biopsied. - An esophageal pH probe catheter was placed. - The LEI pH capsule was deployed. Recommendations : - Discharge patient to home. - Resume previous diet. - Continue present medications. - Return to my office in 3 weeks. My findings are described in the full procedure note, which is enclosed. If I can be of further assistance, please feel free to contact me at Doctor phone number(s): Work: . Sincerely, Serafin Ignacio MD 07/04/2021 9:33:11 AM This report has been signed electronically.
--- NOTE | 2021-07-04 09:40 | OP.COLON_ITS ---
Patient Name: Tatyana Vela Procedure Date: 07/04/2021 9:13 AM Date of : 1970 Age: 50 Procedure: Colonoscopy Indications: Pelvic pain Providers: Serafin Ignacio MD Medicines: See the Anesthesia note for documentation of the administered medications Patient Profile: Last Colonoscopy: January 2017. Complications: No immediate complications. Procedure: Pre-Anesthesia Assessment: - Prior to the procedure, a History and Physical was performed, and patient medications and allergies were reviewed. The patient's tolerance of previous anesthesia was also reviewed. The risks and benefits of the procedure and the sedation options and risks were discussed with the patient. All questions were answered, and informed consent was obtained. Prior Anticoagulants: The patient has taken no previous anticoagulant or antiplatelet agents. ASA Grade Assessment: II - A patient with mild systemic disease. After reviewing the risks and benefits, the patient was deemed in satisfactory condition to undergo the procedure. After I obtained informed consent, the scope was passed under direct vision. Throughout the procedure, the patient's blood pressure, pulse, and oxygen saturations were monitored continuously. The Colonoscope was introduced through the anus and advanced to the cecum, identified by appendiceal orifice and ileocecal valve. The colonoscopy was performed without difficulty. The patient tolerated the procedure well. The quality of the bowel preparation was good. The ileocecal valve and the appendiceal orifice were photographed. Scope In: 9:15:13 AM Scope Withdrawal Time 0 hours 6 minutes 58 seconds Scope Out: 9:25:13 AM Total Procedure Duration Time 0 hours 10 minutes 0 seconds Findings: Hemorrhoids were found on perianal exam. Scattered diverticula were found in the sigmoid colon. The exam was otherwise without abnormality. Impression: - Hemorrhoids found on perianal exam. - Diverticulosis in the sigmoid colon. - The examination was otherwise normal. - No specimens collected. Recommendation: - Discharge patient to home. - Resume previous diet. - Continue present medications. - Repeat colonoscopy in 10 years for screening purposes. - Procedure Code(s): --- Professional --- 30658, Colonoscopy, flexible; diagnostic, including collection of specimen(s) by brushing or washing, when performed (separate procedure) Diagnosis Code(s): --- Professional --- K64.9, Unspecified hemorrhoids R10.2, Pelvic and perineal pain K57.30, Diverticulosis of large intestine without perforation or abscess without bleeding CPT copyright 2017 [employer]. All rights reserved. The codes documented in this report are preliminary and upon hatchery employee review may be revised to meet current compliance requirements. Serafin Ignacio MD 07/04/2021 9:39:56 AM This report has been signed electronically. Number of Addenda: 0 Note Initiated On: 07/04/2021 9:13 AM
--- NOTE | 2021-07-04 09:41 | OP.CCLET_ITS ---
07/04/2021 Madai Kaur, RA [address] [place] [address] Re : Colonoscopy procedure for Tatyana Vela Dear Ms. Kaur This procedure was performed on Sunday, July 04, 2021. My impressions and recommendations are as follows: Impressions : - Hemorrhoids found on perianal exam. - Diverticulosis in the sigmoid colon. - The examination was otherwise normal. - No specimens collected. Recommendations : - Discharge patient to home. - Resume previous diet. - Continue present medications. - Repeat colonoscopy in 10 years for screening purposes. - My findings are described in the full procedure note, which is enclosed. If I can be of further assistance, please feel free to contact me at Doctor phone number(s): Work: . Sincerely, Serafin Ignacio MD 07/04/2021 9:39:56 AM This report has been signed electronically.
== END 2021-07-04 10:40 | disposition home or self-care (01) ==
LOC: EN 07:30 → AC 07:31
PROVIDERS: Anesthesiology; PCP Internal Medicine; Referring Provider Internal Medicine; Visit Provider Surgery
PROC: 0DJD8ZZ Inspection of Lower Intestinal Tract, Via Natural or Artificial Opening Endoscopic (ICD-10-PCS; CPT 45378; principal; 2021-07-04 08:25)
DX: K29.70 Gastritis, unspecified, without bleeding (principal); M06.9 Rheumatoid arthritis, unspecified; Z87.891 Personal history of nicotine dependence; R13.12 Dysphagia, oropharyngeal phase; K57.30 Diverticulosis of large intestine without perforation or abscess without bleeding; I10 Essential (primary) hypertension; R31.9 Hematuria, unspecified; K21.00 Gastro-esophageal reflux disease with esophagitis, without bleeding; Z80.0 Family history of malignant neoplasm of digestive organs; K64.9 Unspecified hemorrhoids; K44.9 Diaphragmatic hernia without obstruction or gangrene; Z90.721 Acquired absence of ovaries, unilateral; K90.49 Malabsorption due to intolerance, not elsewhere classified; R10.12 Left upper quadrant pain; K21.9 Gastro-esophageal reflux disease without esophagitis; G47.33 Obstructive sleep apnea (adult) (pediatric)
CPT/HCPCS: 45378; 43239; 81025; 88305; 88342; J7120

== ENCOUNTER → 2022-03-07 | Outpatient (CLI) | payer OTHER, SELFPAY ==
--- NOTE | 2022-03-07 14:42 | BI_ITS ---
MAMMOGRAPHY - BILATERAL SCREENING REASON FOR EXAM: Female, 51 years old. Routine annual screening examination. PERTINENT HISTORY: Non-contributory. TECHNIQUE: Digital bilateral breast jose (3D mammographic acquisition) in the CC and MLO projections. 2-D mediolateral oblique (MLO) and craniocaudad (CC) views of both breasts were obtained. CAD: Full Field Digital Mammography with Computer Added Detection was performed. COMPARISON: Comparison is made with prior study dated 03/05/2019 and 03/09/2015. FINDINGS: Breast Composition: There are scattered areas of fibroglandular density. There are no dominant masses or suspicious calcifications. No other significant abnormalities are identified. There has been no significant change since the prior study. BI/SCRN MAMM (CAD)W/JOSE BILAT IMPRESSION: Stable bilateral screening mammogram. Yearly follow-up mammogram recommended. (A) ASSESSMENT CATEGORY: BIRADS Category 1: Negative. A letter regarding these results will be sent to the patient by the facility within 30 days. Approximately 10% of breast cancers are not detected by mammography. A normal mammogram should not delay biopsy of a clinically suspicious abnormality. [id number] Electronically Signed: Edwin Salmeron MD at 15:21 EST ,
== END | disposition home or self-care (01) ==
LOC: OPBI 14:40
PROVIDERS: PCP Nurse Practitioner Family; Visit Provider Nurse Practitioner Family
DX: Z12.31 Encounter for screening mammogram for malignant neoplasm of breast (principal)
CPT/HCPCS: 77063; 77067

== ENCOUNTER → 2022-07-03 | Outpatient (CLI) | payer SELFPAY ==
--- NOTE | 2022-07-03 15:20 | VDUE_ITS ---
Reason For Study: Pain and swelling Right Proximal Right jugular vein is spontaneous, widely patent, phasic, with no intraluminal echogenicity noted. Right subclavian vein is spontaneous, widely patent, phasic, with no intraluminal echogenicity noted. Right Lower Arm Right radial vein is compressible. Right ulnar vein is compressible. Right Arm Right axillary vein is spontaneous, patent, phasic, competent, compressible and demonstrates augmentation. Right brachial vein is compressible. Right cephalic vein is compressible. Right basilic vein is compressible. Patient Safety Preliminary report given to Celestino. VL/Venous Duplex US, Unilateral Interpretation Summary Deep veins of the right upper extremity are patent and compressible segmentally . There is no evidence of deep vein thrombosis. Superficial veins of the right upper extremity are patent and compressible segm entally. There is no evidence of superficial vein thrombosis. Ordering Physician: Janina Tirado Referring Physician: Janina Tirado Performed By: Vikki Vázquez RVT ???
== END | disposition home or self-care (01) ==
PROVIDERS: PCP Nurse Practitioner Family; Referring Provider Nurse Practitioner Family; Visit Provider Nurse Practitioner Family
DX: M79.601 Pain in right arm (principal); M79.89 Other specified soft tissue disorders
CPT/HCPCS: 93971

== ENCOUNTER → 2023-11-05 | Outpatient (CLI) | payer OTHER, SELFPAY | END | disposition home or self-care (01) | LOC: SL 11:53 | PROVIDERS: PCP Nurse Practitioner Family; Referring Provider Nurse Practitioner Acute Care; Visit Provider Nurse Practitioner Acute Care | DX: Z46.89 Encounter for fitting and adjustment of other specified devices (principal) ==

== ENCOUNTER → 2024-01-24 | Outpatient (CLI) | payer OTHER, SELFPAY | END | disposition home or self-care (01) | LOC: OPBI 14:03 | PROVIDERS: PCP Nurse Practitioner Family; Referring Provider Nurse Practitioner Family; Visit Provider Nurse Practitioner Family | DX: Z12.31 Encounter for screening mammogram for malignant neoplasm of breast (principal) | CPT/HCPCS: 77063; 77067 ==

== ENCOUNTER 2024-06-25 00:47 | Emergency (ER) | payer OTHER, SELFPAY ==
[2024-06-25 00:47] VITALS: BP 183/89; PULSE 75; RESP 14; TEMP 36.6; O2SAT 98
--- NOTE | 2024-06-25 01:07 | CT_ITS ---
PROCEDURE: ABDOMEN/PELVIS W IV CONT ONLY 06/25/2024 REASON FOR EXAM: ABD PAIN TECHNIQUE: Abdomen and pelvis CT with intravenous contrast. Coronal and Sagittal reconstruction series were provided. PATIENT PREPARATION: Per protocol ORAL CONTRAST TYPE: None. CONTRAST: Isovue 370 VOLUME: 100 ML 18 gauge IV One or more dose reduction techniques were used (e.g., Automated exposure control, adjustment of the mA and/or kV according to patient size, use of iterative reconstruction technique. RADIATION DOSE SUMMARY: CTDlvol: 1232.4 mGy DLP: 1239.0 mGycm COMPARISON: None available FINDINGS: Lung bases: Lung bases are clear. Liver: Unremarkable Gallbladder: Surgically absent Spleen: Unremarkable Pancreas: No main pancreatic ductal dilation. Adrenals: Unremarkable Kidneys: Kidneys are normal in size and configuration. No hydronephrosis or nephrolithiasis. Bladder: No focal bladder wall thickening. Reproductive Organs: Unremarkable Bowel: No small bowel or large bowel obstruction or dilation. Appendix: Unremarkable Lymph nodes: Several enlarged lymph nodes within the retroperitoneum, measuring up to 8 mm, likely representing lymphomatous involvement. Vasculature: Patent vasculature Peritoneum / Retroperitoneum: No lymphadenopathy. Bones: No aggressive osseous lesions. No acute fractures. CT/Abdomen/Pelvis W IV Cont ONLY IMPRESSION: *Several mildly enlarged lymph nodes within the retroperitoneum, raising concer n for low-grade lymphoma. *Otherwise no acute pathology within the abdomen or pelvis. *Diverticulosis within the sigmoid colon. Reading Location: [facility]
[2024-06-25 01:16] LABS: Absolute Lymphocyte Count 1.42 X10^3/uL (0.83-4.51); Absolute Neutrophil Count 2.1 X10^3/uL (2.0-7.7); Basophil# 0.02 X10^3/uL; Basophil% 0.5 % (0-1); Eosinophils% 4.6 % (0-5); Hematocrit 38.1 % (37-47); Hemoglobin 13.3 g/dL (12.0-15.0); Lymphocyte # 1.42 X10^3/ul (0.83-4.51); Lymphocyte % 32.7 % (19-41); Mean Corp Hgb Conc 34.9 g/dL (32-36); Mean Corpuscular Hgb 31.9 pg (27.0-32.0); Mean Corpuscular Volume 91.4 fL (81-99); Monocyte# 0.64 X10^3/uL; Monocyte% 14.7 % (0-10); NRBC Flagged by Analyzer 0 % (0-5); Neutrophil # 2.05 X10^3/uL (2.7-7.7); Neutrophil % 47.3 % (47-70); Platelet Count 299 K/mm3 (150-450); RBC Distribution Width CV 13.2 % (11.6-14.6); RBC Distribution Width SD 44.2 fl (35.1-43.9); Red Blood Count 4.17 M/mm3 (4.2-5.4); White Blood Count 4.3 K/mm3 (4.4-11.0)
[2024-06-25] MEDS: 0.9% Normal Saline (1000mL) 1,000 ML 999 ML IV (01:20)
[2024-06-25] MEDS: Famotidine 200 MG/20 ML MDV 20 MG in 0.9% Normal Saline (Pres. free 8 ML 300 MG IV (01:20)
[2024-06-25 01:21] LABS: Mucous, Urine 0 SEEN /hpf (<or=2+)
[2024-06-25] MEDS: Lidocaine 2% Viscous15 ML UDC 15 ML PO (01:22)
[2024-06-25] MEDS: Mag Hydrox/Al Hydrox/Simeth 30 ML UDC PO (01:22)
[2024-06-25] MEDS: Ondansetron 4 MG/2 ML Vial IV (01:23)
[2024-06-25] MEDS: Morphine 4 MG/ML Syringe IV (01:23)
[2024-06-25 01:25] LABS: Color, Urine Yellow (Yellow); Glucose, Dipstick Normal (Normal); Ketone-Dipstick Negative (Negative); Leukocyte Esterase-Dipstick 25 /ul (Negative); Nitrite-Dipstick Negative (Negative); Occult Blood-Urine 10 /ul (Negative); Protein-Dipstick 15 mg/dl (Negative); Specific Gravity, Urine 1.015 (1.002-1.030); Urine Bilirubin Dipstick Negative (Negative); Urine Clarity Clear (Clear); Urine Urobilinogen Normal (Normal)
[2024-06-25 01:44] LABS: Lipase 55 U/L (13-75)
[2024-06-25 01:49] LABS: AST(SGOT) 41 U/L (<=31); Alanine Aminotransfer ALT/SGPT 41 U/L (<=34); Albumin, Serum 4.3 g/dL (3.5-5.0); Alkaline Phosphatase 71 U/L (35-104); Anion Gap 12 (5-15); BUN 15 mg/dL (4-19); BUN/Creat Ratio 18.9 RATIO (10-20); Bilirubin, Direct < 0.08 mg/dL (0.00-0.30); Calcium,Total 9.4 mg/dL (7.6-11.0); Carbon Dioxide 24.7 mmol/L (21.0-32.0); Chloride 102 mmol/L (98-108); Creatinine, Serum 0.79 mg/dL (0.70-1.20); EST Glomerular Filtration Rate 91 (>60); Globulin 3.1 g/dL (2.2-4.2); Glucose 103 mg/dL (70-99); Potassium 4.4 mmol/L (3.3-5.1); Protein, Total 7.4 g/dL (5.9-8.4); Sodium Level 139 mmol/L (133-145); Total Bilirubin 0.42 mg/dL (0.00-1.30)
[2024-06-25] MEDS: DiphenhydrAMINE 50 MG/ML Syringe 25 MG IV (02:18)
[2024-06-25] MEDS: Metoclopramide 10 MG/2 ML Vial IV (02:18)
[2024-06-25 02:20] LABS: Bacteria RARE /hpf (None Seen); Red Blood Cells-Urine 0-5 SEEN /hpf (0-5); Squamous Epithelial Cells - UA 0-5 SEEN /hpf (5-10); White Blood Cells 5-10 SEEN /hpf (0-5)
[2024-06-25 02:27] VITALS: BP 153/89; PULSE 86; RESP 19; O2SAT 99
--- NOTE | 2024-06-25 02:59 | EX.ED.DYSGE1 ---
HPI History of Present Illness Chief Complaint: Abd Pain Informant: patient Narrative Narrative: Patient is a 53-year-old female with past medical history of hypertension rheumatoid radius and GERD. She states she has been having abdominal discomfort for the past few days but this evening it seemed to worsen. She states she has a history of gastritis and typically she takes Maalox this will help. She states she did this and there was improvement but instead of keeping her pain at bay after a few hours the pain returned. As this is abnormal for the patient and she presents for evaluation. She states otherwise there is been no fevers or chills or trauma. She denies any dysuria constipation or diarrhea. She denies any known sick contacts. 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 OOPHERECTOMY Chest pain Elevated LFTs Splenic infarction Mild sleep apnea Neutropenia Undifferentiated connective tissue disease Raynaud disease Shingles GERD (gastroesophageal reflux disease) Depression Anxiety Anemia Anticardiolipin antibody positive Monoclonal gammopathy Dermoid cyst Home Medications ?Medication ?Instructions ?Recorded ?Last Taken ?Type omeprazole 40 mg capsule,delayed 40 mg PO DAILY 02/18/15 03/10/16 08:00 History release cholecalciferol (vitamin D3) 50 2,000 unit PO BID PRN OTHER 06/13/16 Unknown History mcg (2,000 unit) capsule lorazepam 0.5 mg tablet 0.5 mg PO DAILY PRN PRN Anxiety 06/13/16 Unknown History prednisone 10 mg tablet 10 mg PO DAILY PRN Autoimmunie dz 07/09/16 Unknown History flare up hydroxychloroquine 200 mg tablet 200 mg PO BID 06/20/21 Unknown History hyoscyamine sulfate 0.125 mg 0.125 mg PO BID-QID PRN Hiatal 06/20/21 Unknown History tablet (Levsin) Hernia fluticasone propionate 50 2 spray intranasal DAILY PRN 06/30/21 Unknown History mcg/actuation nasal Congestion spray,suspension albuterol sulfate 90 mcg/actuation 2 puff inhalation Q4H PRN 10/23/23 Unknown Rx aerosol inhaler (Ventolin HFA) shortness of breath or wheezing #8.5 grams metoclopramide HCl 10 mg tablet 10 mg PO Q6H PRN nausea and 06/25/24 Unknown Rx (Reglan) vomiting #40 tabs Allergy/AdvReac Type Severity Reaction Status Date / Time latex AdvReac Other Verified 06/25/24 00:51 tramadol AdvReac PALPITATION Verified 06/25/24 00:51 S Family History (Reviewed 10/23/23 @ 11:09 by Viji Petersen AIR CONDITIONING SUPERVISOR, AIR CONDITIONING SUPERVISOR-C) Mother Thyroid disorder Colon cancer Father Lung cancer Colon cancer Obesity Hypertension Grandmother Colon cancer Diabetes Surgical History (Reviewed 10/23/23 @ 11:09 by Viji Petersen AIR CONDITIONING SUPERVISOR, AIR CONDITIONING SUPERVISOR-C) History of colonoscopy History of esophagogastroduodenoscopy (EGD) Hx of removal of ovary Hx of cholecystectomy Social History Smoking Status: Former smoker alcohol intake: never substance use type: does not use ROS ROS ED Constitutional Constitutional ED: Denies chills or fever(s) ENT ENT ED: Denies sore throat Cardiovascular Cardiovascular: Denies chest pain Respiratory/Chest Respiratory/Chest: Denies cough or dyspnea Gastrointestinal Gastrointestinal: Reports abdominal pain and nausea; Denies constipation, diarrhea or vomiting Genitourinary Genitourinary ED: Denies dysuria or hematuria Musculoskeletal Musculoskeletal: Denies back pain or myalgias Integumentary Denies rash Neurologic Neurologic: Denies headache(s) Hematologic/Lymphatic Hematologic/Lymphatic: Denies easy bleeding or easy bruising EXAM Physical Exam Const Vital Signs: 06/25/24 00:47 06/25/24 02:27 06/25/24 03:18 Temperature 97.8 F 97.0 F L Temperature Source Oral Pulse Rate 75 86 78 Respiratory Rate 14 19 H 15 Blood Pressure 183/89 H 153/89 H 138/95 H Blood Pressure Mean 120 110 109 Pulse Ox 98 99 97 Oxygen Delivery Method Room Air Room Air Positive well nourished, well developed and obese General Appearance ED: well developed; Negative for pallor Nutritional Appearance: obese HEENT Reports moist mucous membranes HEENT Narrative: No signs of infection noted in the posterior pharynx Eyes PERRL and EOMs intact bilaterally General Eye ED: Negative for scleral icterus Neck supple Neck Narrative: No nuchal rigidity or meningeal signs Resp normal respiratory effort and clear to auscultation bilaterally Cardio regular rate and regular rhythm Rate: other Other Details: Regular rate and rhythm without murmurs rubs or gallop Radial and carotid pulses are equal and symmetric GI non-distended and no masses GI Narrative: Abdomen is soft nontender and nondistended with hypoactive bowel sounds. There is pain on palpation in the midepigastric region without voluntary guarding or rigidity. No pulsatile mass or fluid wave noted. Auscultation: hypoactive bowel sounds Palpation: soft Back/Spine no CVA tenderness Extremity normal to inspection Neuro oriented x3, CN's II-XII intact bilaterally and no sensory deficits noted Sensorium / Orientation: alert Motor Exam: strength 5/5 throughout Psych mental status grossly normal Skin no rashes or lesions noted and no wounds General Skin Exam: Negative for jaundice or pallor MDM MDM MDM Narrative Medical decision making narrative: Patient arrived to the ER hypertensive but has a past medical history of this and otherwise vitals are stable. With the report of worsening abdominal pain not responding to her standard medication there is concern for pancreatitis versus biliary colic versus acute cholecystitis versus diverticulitis versus intestinal obstruction versus UTI. Therefore basic labs were obtained with urine sample and a CT scan with IV contrast. Labs revealed no clinically significant findings. CT scan revealed no signs of acute infection obstruction or perforation. It did document lymphadenopathy in the retroperitoneal space concerning for low-grade lymphoma. However with treatment the patient's vitals improved as well as her pain. On reevaluation her abdomen remains soft and nonsurgical. The low-grade lymphoma possibility can be worked up as an outpatient. Therefore there is no need for further workup in the ER and she is otherwise safe for discharge. History & Record Review Discussion w/independent historian: Patient Lab Data Attestation: I reviewed the patient's lab results. Labs: Laboratory Results - last 24 hr 06/25/24 06/25/24 00:55 01:16 WBC 4.3 L RBC 4.17 L Hgb 13.3 Hct 38.1 MCV 91.4 MCH 31.9 MCHC 34.9 RDW Std Deviation 44.2 H RDW Coeff of Alexander 13.2 Plt Count 299 MPV 9.0 Immature Gran % (Auto) 0.200 Neut % (Auto) 47.3 Lymph % (Auto) 32.7 Hickman % (Auto) 14.7 H Eos % (Auto) 4.6 Baso % (Auto) 0.5 Absolute Neuts (auto) 2.1 Absolute Lymphs (auto) 1.42 Nucleated RBC % 0 Sodium 139 Potassium 4.4 Chloride 102 Carbon Dioxide 24.7 Anion Gap 12 BUN 15 Creatinine 0.79 Est GFR (MDRD) Non-Af 91 BUN/Creatinine Ratio 18.9 Glucose 103 H Calcium 9.4 Total Bilirubin 0.42 Direct Bilirubin < 0.08 AST 41 H ALT 41 H Alkaline Phosphatase 71 Total Protein 7.4 Albumin 4.3 Globulin 3.1 Lipase 55 Urine Color Yellow Urine Clarity Clear Urine pH 6.0 Ur Specific [place] 1.015 Urine Protein 15 H Urine Glucose (UA) Normal Urine Ketones Negative Urine Occult Blood 10 H Urine Nitrite Negative Urine Bilirubin Negative Urine Urobilinogen Normal Ur Leukocyte Esterase 25 H Urine RBC 0-5 SEEN Urine WBC 5-10 SEEN Ur Squamous Epith Cells 0-5 SEEN Urine Bacteria RARE Urine Mucus 0 SEEN Radiography Diagnostic Testing: Clinical Impression(s) from Imaging Studies Abdomen/Pelvis CT 06/25/24 01:07 IMPRESSION: *Several mildly enlarged lymph nodes within the retroperitoneum, raising concern for low-grade lymphoma. *Otherwise no acute pathology within the abdomen or pelvis. *Diverticulosis within the sigmoid colon. Reading Location: [facility] ER Discharge Plan Triage Chief Complaint: Abd Pain ED Provider: Hansel Bosch Dx/Rx/DC Orders Clinical Impression: Nonspecific abdominal pain, Lymphadenopathy, GERD (gastroesophageal reflux disease), Essential hypertension, Rheumatoid arthritis Instructions: Abdominal Pain, Lymphadenopathy Prescriptions: New metoclopramide HCl [Reglan] 10 mg tablet 10 mg PO Q6H PRN (Reason: nausea and vomiting) Qty: 40 0RF No Action hyoscyamine sulfate [Levsin] 0.125 mg tablet 0.125 mg PO BID-QID PRN (Reason: Hiatal Hernia) albuterol sulfate [Ventolin HFA] 90 mcg/actuation HFA aerosol inhaler 2 puff inhalation Q4H PRN (Reason: shortness of breath or wheezing) Qty: 8.5 6RF omeprazole 40 MG capsule 40 mg PO DAILY Patient Comments: REFLUX hydroxychloroquine 200 mg tablet 200 mg PO BID Patient Comments: UNDIFFERENTIATED CONNICTIVE TISSUE DISEASE lorazepam 0.5 MG tablet 0.5 mg PO DAILY PRN PRN (Reason: Anxiety) cholecalciferol (vitamin D3) 2,000 UNIT capsule 2,000 unit PO BID PRN (Reason: OTHER) prednisone 10 MG tablet 10 mg PO DAILY PRN (Reason: Autoimmunie dz flare up) fluticasone propionate [Flonase] 50 mcg/actuation [place],Suspension 2 spray INTRANASAL DAILY PRN (Reason: Congestion) Primary Care Provider: Janina Tirado Referrals: Janina Tirado, AIR CONDITIONING SUPERVISOR-C [Primary Care Provider] - Activity Restrictions/Additional Instructions: Your CT scan showed no obvious abdominal pathology but it did document enlarged lymph nodes in the retroperitoneum raising concern for potentially a lymphoma/non-Hodgkin's lymphoma. Follow-up with your family doctor to discuss further testing and/or referrals and return to the ER should you have any further concerns Print Language: [place]ese Disposition Disposition: Home, Self Care Discharge Date/Time: 06/25/24 03:20
[2024-06-25 03:18] VITALS: BP 138/95; PULSE 78; RESP 15; TEMP 36.1; O2SAT 97
== END 2024-06-25 03:20 | disposition home or self-care (01) ==
PROVIDERS: Emergency Provider Emergency Medicine; PCP Nurse Practitioner Family; Visit Provider Emergency Medicine
DX: R10.9 Unspecified abdominal pain (principal); M06.9 Rheumatoid arthritis, unspecified; K21.9 Gastro-esophageal reflux disease without esophagitis; Z87.891 Personal history of nicotine dependence; I10 Essential (primary) hypertension; Z86.718 Personal history of other venous thrombosis and embolism; Z99.89 Dependence on other enabling machines and devices; G47.33 Obstructive sleep apnea (adult) (pediatric); Z90.49 Acquired absence of other specified parts of digestive tract; R11.0 Nausea; E66.9 Obesity, unspecified; R59.9 Enlarged lymph nodes, unspecified
CPT/HCPCS: 74177; 80048; 80076; 81001; 83690; 85025; 96361; 96374; 96375; 99285; Q9967; A4216; J2405

== ENCOUNTER → 2024-09-10 | Outpatient (CLI) | payer OTHER, SELFPAY ==
[2024-09-10 14:24] LABS: AST(SGOT) 27 U/L (<=31); Alanine Aminotransfer ALT/SGPT 45 U/L (<=34); Albumin, Serum 4.1 g/dL (3.5-5.0); Alkaline Phosphatase 65 U/L (35-104); Bilirubin, Direct 0.16 mg/dL (0.00-0.30); Globulin 2.9 g/dL (2.2-4.2); Total Bilirubin 0.41 mg/dL (0.00-1.30)
== END | disposition home or self-care (01) ==
LOC: LAB 12:05
PROVIDERS: PCP Nurse Practitioner Family; Referring Provider Internal Medicine Rheumatology; Visit Provider Internal Medicine Rheumatology
DX: R74.8 Abnormal levels of other serum enzymes (principal)
CPT/HCPCS: 36415; 80076

== ENCOUNTER → 2024-10-22 | Outpatient (CLI) | payer OTHER, SELFPAY ==
--- NOTE | 2024-10-22 08:05 | VDLE_ITS ---
Reason For Study Reason For Study: RLE PAIN RIGHT GSV is normal. CFV is compressible, spontaneous, phasic, competent and demonstrates normal augmentation. FV is compressible, spontaneous, phasic, competent and demonstrates normal augmentation. POP V is compressible, spontaneous, phasic, competent and demonstrates normal augmentation. T/P Trunk is compressible. PTV is compressible. RT PerV is compressible. Procedure This is a venous duplex using B-mode, color flow and spectral Doppler. Exam performed in department. A preliminary report was called and/or faxed to PCP: Janina Tirado @ [phone]. Report sent to ordering PA Aguilar Morocho @ [phone]. VL/Venous Duplex US, Unilateral Interpretation Summary Deep veins of the right lower extremity are patent and compressible segmentally . There is no evidence of right lower extremity deep vein thrombosis. Valvular competence appears intact within the p roximal deep venous system on the right . The right great saphenous vein appears patent and compressible segmentally. Ordering Physician: Aguilar Morocho Referring Physician: Janina Tirado Performed By: Kasie Sainz, SEBASTIAN, RVT
== END | disposition home or self-care (01) ==
LOC: CVS 08:04
PROVIDERS: PCP Nurse Practitioner Family; Referring Provider Physician Assistant; Visit Provider Physician Assistant
DX: M79.661 Pain in right lower leg (principal); M79.89 Other specified soft tissue disorders
CPT/HCPCS: 93971

== ENCOUNTER 2025-02-05 18:22 | Emergency (ER) | payer OTHER, SELFPAY ==
[2025-02-05 18:22] VITALS: BP 126/78; PULSE 90; RESP 18; TEMP 37.1; O2SAT 97; BMI 39.6
== END 2025-02-05 18:30 | disposition left against medical advice (07) ==
LOC: ED 19:10
PROVIDERS: PCP Nurse Practitioner Family
DX: R89.9 Unspecified abnormal finding in specimens from other organs, systems and tissues (principal)

== ENCOUNTER → 2025-02-10 | Outpatient (CLI) | payer OTHER, SELFPAY ==
[2025-02-10 11:16] LABS: Hematocrit 25.2 % (37-47); Hemoglobin 8.6 g/dL (12.0-15.0); Immature Granulocytes Count 0.000 X10^3/uL (0.0-0.0); Mean Corp Hgb Conc 34.1 g/dL (32-36); Mean Corpuscular Volume 92.3 fL (81-99); Mean Platelet Vol. 10.4 fl (6.2-12.0); NRBC Flagged by Analyzer 0 % (0-5); POSITIVE COUNT YES; POSITIVE DIFFERENTIAL YES; Platelet Count 114 K/mm3 (150-450); RBC Distribution Width CV 15.8 % (11.6-14.6); RBC Distribution Width SD 50.2 fl (35.1-43.9); Red Blood Count 2.73 M/mm3 (4.2-5.4)
[2025-02-10 11:44] LABS: Differential Indicated SCAN CRITERIA MET
[2025-02-10 11:50] LABS: White Blood Count 1.4 K/mm3 (4.4-11.0)
[2025-02-10 13:17] LABS: Cholesterol 139 mg/dL (<=200); Ferritin 144 ng/mL (22-378); Free T3 2.5 pg/mL (2.18-3.98); Low Density Lipoprotein Calc. 90 mg/dL; Triglycerides 100 mg/dL; Very Low Density Lipoprotein 20 mg/dL (5-40); Vitamin B12 768 pg/mL (180-914); Vitamin D,25 Hydroxy 31.9 ng/mL (30-100); cholesterol:hdl ratio screen 4.66
[2025-02-10 13:42] LABS: Iron 112 ug/dL (50-170); Iron Binding Capacity,Unsat 98 ug/dL (228-428)
[2025-02-10 13:55] LABS: Iron Binding Capacity,Total 210 ug/dL (250-450)
[2025-02-11 04:07] LABS: GGTP 16 IU/L (0-60)
== END | disposition home or self-care (01) ==
PROVIDERS: PCP Nurse Practitioner Family; Referring Provider Nurse Practitioner Family; Visit Provider Nurse Practitioner Family
DX: Z13.220 Encounter for screening for lipoid disorders (principal); Z13.1 Encounter for screening for diabetes mellitus; K76.0 Fatty (change of) liver, not elsewhere classified; R53.83 Other fatigue
CPT/HCPCS: 36415; 80061; 82306; 82607; 82728; 82977; 83036; 83540; 83550; 84439; 84443; 84481; 85025; 86376

== ENCOUNTER → 2025-02-15 | Outpatient (CLI) | payer OTHER, SELFPAY ==
[2025-02-15 14:27] LABS: Hematocrit 24.8 % (37-47); Hemoglobin 9.0 g/dL (12.0-15.0); Mean Corp Hgb Conc 36.3 g/dL (32-36); Mean Corpuscular Volume 100.8 fL (81-99); Mean Platelet Vol. 11.2 fl (6.2-12.0); Platelet Count 144 K/mm3 (150-450); RBC Distribution Width CV 19.8 % (11.6-14.6); RBC Distribution Width SD 57.0 fl (35.1-43.9); Red Blood Count 2.46 M/mm3 (4.2-5.4); White Blood Count 2.4 K/mm3 (4.4-11.0)
== END | disposition home or self-care (01) ==
LOC: LAB 13:23
PROVIDERS: PCP Nurse Practitioner Family
DX: D61.818 Other pancytopenia (principal)
CPT/HCPCS: 36415; 85027

== ENCOUNTER → 2025-02-22 | Outpatient (CLI) | payer OTHER, SELFPAY ==
[2025-02-22 09:57] LABS: Hematocrit 27.8 % (37-47); Hemoglobin 9.7 g/dL (12.0-15.0); Immature Granulocytes Count 0.010 X10^3/uL (0.0-0.0); Mean Corp Hgb Conc 34.9 g/dL (32-36); Mean Corpuscular Volume 103.7 fL (81-99); Mean Platelet Vol. 11.4 fl (6.2-12.0); NRBC Flagged by Analyzer 0 % (0-5); POSITIVE DIFFERENTIAL YES; POSITIVE MORPHOLOGY YES; Platelet Count 143 K/mm3 (150-450); RBC Distribution Width CV 22.2 % (11.6-14.6); RBC Distribution Width SD 70.0 fl (35.1-43.9); Red Blood Count 2.68 M/mm3 (4.2-5.4); White Blood Count 2.0 K/mm3 (4.4-11.0)
[2025-02-22 10:02] LABS: Differential Indicated SCAN CRITERIA MET
[2025-02-22 10:29] LABS: Differential Comment SCANNED
[2025-02-22 10:30] LABS: Anisocytosis 2+; Macrocytosis 1+; Microcytosis 1+; Polychromasia RARE
[2025-02-24 16:09] LABS: Albumin 3.2 g/dL (2.9-4.4); Gamma Globulin 1.5 g/dL (0.4-1.8); Immunoglobulin A 5 mg/dL (87-352); Immunoglobulin G 1151 mg/dL (586-1602); Immunoglobulin M 638 mg/dL (26-217); PROEL- TOTAL PROTEIN 6.3 g/dL (6.0-8.5)
== END | disposition home or self-care (01) ==
PROVIDERS: PCP Nurse Practitioner Family
DX: D61.818 Other pancytopenia (principal)
CPT/HCPCS: 36415; 82784; 84165; 85025; 86334

== ENCOUNTER → 2025-02-26 | Outpatient (CLI) | payer OTHER, SELFPAY ==
--- NOTE | 2025-02-26 18:02 | CT_ITS ---
PROCEDURE: ABDOMEN/PELVIS WITH CONTRAST 02/26/2025 REASON FOR EXAM: RETROPERITONEAL SOFT TISSUE MASS FOLLOW UP TECHNIQUE: Procedure Code: [id number] Modality: CT Procedure: ABDOMEN/PELVIS WITH CONTRAST Coronal and Sagittal reconstruction series were provided. CONTRAST: 100 cc of Isovue 370 One or more dose reduction techniques were used (e.g., Automated exposure control, adjustment of the mA and/or kV according to patient size, use of iterative reconstruction technique. COMPARISON: CT abdomen and pelvis 06/26/2019 FINDINGS: Lung bases: Unremarkable. Liver: Nonenlarged. Diffuse hepatic steatosis. No obvious hepatic mass. Gallbladder: Surgically absent. No biliary ductal dilatation. Spleen: Mildly enlarged measuring 12.8 cm in long axis. Pancreas: Normal size without evidence of mass surrounding inflammation or ductal dilation. Adrenals: No adrenal masses. Kidneys: Normal renal sizes. No hydronephrosis. Bladder: Unremarkable. Reproductive Organs: Normal uterine size and contour. Ovaries are unremarkable. Bowel: No bowel obstruction. No inflammatory changes. Appendix: The appendix is not identified. There is no inflammatory process identified in the right lower quadrant to suggest appendicitis. Lymph nodes/retroperitoneum: Significant interval increase in the multiple enlarged retroperitoneal lymph nodes, now with increased surrounding fibrosis and heterogenous enhancement. The area measures approximately 2.8 x 7.4 x 10.8 cm in conglomerate (AP x transverse x longitudinal). Vasculature: The abdominal aorta and IVC are normal. Peritoneum: No intraperitoneal free fluid or air. Bones: No acute fractures. No destructive osseous lesions. CT/Abdomen/Pelvis WITH Contrast IMPRESSION: 1. Significant interval increase in the size and amount of retroperitoneal lymp h nodes with increased non-discernible surrounding fibrosis and heterogenous enhancement measuring a proximally 2.8 x 7.4 x 10.8 c m in conglomerate. 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 2. Mild splenomegaly. 3. Diffuse hepatic steatosis. Reading Location[facility]
== END | disposition home or self-care (01) ==
LOC: CT 17:56
PROVIDERS: PCP Nurse Practitioner Family
DX: D61.818 Other pancytopenia (principal); M79.89 Other specified soft tissue disorders
CPT/HCPCS: 74177; Q9967

== ENCOUNTER → 2025-03-01 | Outpatient (CLI) | payer OTHER, SELFPAY ==
[2025-03-01 13:24] LABS: Hematocrit 29.2 % (37-47); Hemoglobin 10.3 g/dL (12.0-15.0); Immature Granulocytes Count 0.010 X10^3/uL (0.0-0.0); Mean Corp Hgb Conc 35.3 g/dL (32-36); Mean Corpuscular Volume 107.0 fL (81-99); Mean Platelet Vol. 11.9 fl (6.2-12.0); NRBC Flagged by Analyzer 0 % (0-5); POSITIVE DIFFERENTIAL YES; POSITIVE MORPHOLOGY YES; Platelet Count 157 K/mm3 (150-450); RBC Distribution Width CV 23.2 % (11.6-14.6); RBC Distribution Width SD 76.9 fl (35.1-43.9); Red Blood Count 2.73 M/mm3 (4.2-5.4); White Blood Count 3.0 K/mm3 (4.4-11.0)
[2025-03-01 13:47] LABS: Differential Indicated SCAN CRITERIA MET
[2025-03-01 13:53] LABS: Differential Comment SCANNED
[2025-03-01 13:54] LABS: Anisocytosis 2+
== END | disposition home or self-care (01) ==
LOC: LAB 12:18
PROVIDERS: PCP Nurse Practitioner Family
DX: D61.818 Other pancytopenia (principal)
CPT/HCPCS: 36415; 85025

== ENCOUNTER → 2025-03-04 | Outpatient (CLI) | payer OTHER, SELFPAY ==
[2025-03-04 09:29] LABS: Red Blood Cells-Urine 0 SEEN /hpf (0-5)
[2025-03-04 12:36] LABS: Color, Urine Yellow (Yellow); Glucose, Dipstick Normal (Normal); Ketone-Dipstick Negative (Negative); Leukocyte Esterase-Dipstick 25 /ul (Negative); Nitrite-Dipstick Negative (Negative); Occult Blood-Urine Negative /ul (Negative); Protein-Dipstick 30 mg/dl (Negative); Specific Gravity, Urine 1.025 (1.002-1.030); Urine Bilirubin Dipstick Negative (Negative)
[2025-03-04 12:40] LABS: Anion Gap 13 (5-15); BUN 16 mg/dL (4-19); BUN/Creat Ratio 17.3 RATIO (10-20); Calcium,Total 9.2 mg/dL (7.6-11.0); Carbon Dioxide 24.4 mmol/L (21.0-32.0); Chloride 105 mmol/L (98-108); Glucose 99 mg/dL (70-99); Magnesium 2.5 mg/dL (1.5-2.2); Potassium 4.0 mmol/L (3.3-5.1)
[2025-03-04 12:59] LABS: Calcium Oxalate Crystals Ur 1+ /hpf (<or=2+); Mucous, Urine 1+ /hpf (<or=2+); Squamous Epithelial Cells - UA 5-10 SEEN /hpf (5-10)
== END | disposition home or self-care (01) ==
LOC: VSLAB 09:19
PROVIDERS: PCP Nurse Practitioner Family
DX: R25.2 Cramp and spasm (principal); N39.0 Urinary tract infection, site not specified
CPT/HCPCS: 36415; 80048; 81001; 83735; 87077; 87086; 87088; 87186

== ENCOUNTER → 2025-03-05 | Outpatient (CLI) | payer OTHER, SELFPAY ==
--- NOTE | 2025-03-05 08:56 | US_ITS ---
PROCEDURE: ABD LIMITED W/ ELASTOGRAPHY REASON FOR EXAM: FATTY LIVER COMPARISON: January 10, 2021. TECHNIQUE: Procedure Code: [id number] Modality: US Procedure: ABD LIMITED W/ ELASTOGRAPHY Right upper quadrant abdominal ultrasound. [employer] ElastQ [employer] shear wave elastography for non-invasive assessment of liver tissue stiffness. [employer] EPIQ Elite. FINDINGS: LIVER: Size: Unremarkable Length: 13 cm Echotexture: Diffusely echogenic suggesting fatty infiltration Contour: Normal Lesions: There is a 9 mm x 9 mm x 8 mm cyst in the left lobe of the liver. Elastography: EQI Med: 7.6 kPa EQI Med Marcus: 1.58 m/s IQR/Med: 9.9 %* GALLBLADDER: Surgically absent. COMMON BILE DUCT: Normal measuring 5.4 mm . PANCREAS: Normal Visualized portions of the right kidney are unremarkable. No right upper quadrant ascites. Spleen: The spleen measures 12.4 cm 4.4 cm 4.2 cm. US/ABD Limited w/ Elastography IMPRESSION: Moderate hepatic fibrosis. Fatty infiltration of the liver. Small cyst in the left lobe of the liver. Status post cholecystectomy. Reference Values: SRU <1.37 m/s (5.7kPa): No to mild fibrosis 1.37 m/s - 2.2 m/s: Moderate to severe fibrosis >2.2 m/s (15kPa): Significant fibrosis / cirrhosis METAVIR Score F2 or higher: 1.34 m/s (5.7kPa) F3 or higher: 1.55 m/s (7.3kPa) F4: 1.80 m/s (10kPa) * If the IQR/Med is >30%, the variance in the measurements is a large and the a ccuracy of the measurement may be in question. Reading Location: [facility]
--- NOTE | 2025-03-05 10:15 | BI_ITS ---
EXAM: SCRN MAMM (CAD)W/JOSE BILAT DATE: 03/05/2025 CLINICAL HISTORY: F, Age 54 y/o , SCREENING TECHNIQUE: Procedure Code: [id number] Modality: MG Procedure: SCRN MAMM (CAD)W/JOSE BILAT COMPARISON: Prior exam(s) dated 01/24/2024, 03/07/2022, 03/05/2019. FINDINGS: TISSUE DENSITY: There are scattered areas of fibroglandular density. Bilateral Breast Mammographic Findings: No significant masses, calcifications or other abnormalities are identified. BI/SCRN MAMM (CAD)W/JOSE BILAT IMPRESSION: There is no mammographic evidence of malignancy. OVERALL FINAL ASSESSMENT BI-RADS 1: NEGATIVE. RECOMMENDATION: Routine annual follow-up in 1 Year Additional Recommendation none A letter with findings and recommendations will be mailed to the patient. Reading Location: [id number]
== END | disposition home or self-care (01) ==
LOC: US 08:53
PROVIDERS: PCP Nurse Practitioner Family; Referring Provider Nurse Practitioner Family; Visit Provider Nurse Practitioner Family
DX: Z12.31 Encounter for screening mammogram for malignant neoplasm of breast (principal); K76.0 Fatty (change of) liver, not elsewhere classified
CPT/HCPCS: 76705; 76981; 77063; 77067